=== PATIENT | female | born 1950 | race Caucasian/White ===

== ENCOUNTER 2020-01-03 11:03 | Observation (INO) | payer MEDICARE, SELFPAY ==
[2020-01-03] VITALS (8 sets, daily range): BP systolic 109–149; BP diastolic 42–63; PULSE 50–59; RESP 16–23; TEMP 36.2–36.9; O2SAT 94–99
--- NOTE | ~2020-01-03 | XR_ITS ---
XR chest 2V 01/03/2020 13:27 Indication: Shortness of breath Procedure: 2 view chest Comparison: Comparison to multiple prior studies sequentially, with oldest reviewed study dated 11/2016. Findings: Status post median sternotomy for CABG. There is a prosthetic heart valve. There are bilate ral pleural effusions, right greater than left. There is bibasilar airspace disease. No edema or pneu mothorax. Impression: 1: Bibasilar airspace disease, atelectasis versus pneumonia. 2: Pleural effusions, right greater than left. 3: Cardiomegaly. Reviewed, dictated and finalized at location A. Impression: 1: Bibasilar airspace disease, atelectasis versus pneumonia. 2: Pleural effusions, right greater than left. 3: Cardiomegaly.
--- NOTE | 2020-01-03 11:45 | ECG_ITS ---
Measurements Intervals [place] Rate: 48 P: [place]: 0 QRS: 142 QRSD: 158 T: 69 QT: 544 QTc: 491 Interpretive Statements ATRIAL FIBRILLATION WITH SLOW VENTRICULAR RESPONSE RIGHT BUNDLE BRANCH BLOCK LEFT POSTERIOR FASCICULAR BLOCK BASELINE ARTIFACT- I, II, III, AVR, AVL, AVF ABNORMAL ECG Electronically Signed On 01-03-2020 13:03:59 CDT by Domo Zeng D.O.
[2020-01-03 12:00] LABS: Basophils Absolute Auto 0.1 K/mm3 (0.0-0.1); Basophils Percent Auto 1.1 % (0.2-1.2); Eosinophils Absolute Auto 0.3 K/mm3 (0-0.3); Eosinophils Percent Auto 2.9 % (0-4.4); Hematocrit 35.7 % (37.0-47.0); Hemoglobin 11.2 g/dL (12.0-15.0); Immature Granulocyte Absolute 0.02 K/mm3 (0.00-0.031); Immature Granulocyte Percent A 0.2 % (0-0.5); Lymphocytes Absolute Auto 1.37 K/mm3 (0.9-3.2); Lymphocytes Percent Auto 13.7 % (18.3-44.2); Mean Corpuscular HGB Conc 31.4 g/dl (32-36); Mean Corpuscular Hemoglobin 27.5 pg (26-34); Mean Corpuscular Volume 87.5 fl (80-100); Mean Platelet Volume 11.2 fl (7.4-10.4); Monocytes Percent Auto 9.9 % (2.6-8.5); Neutrophils Absolute Auto 7.2 K/mm3 (1.3-6.7); Neutrophils Percent Auto 72.2 % (45.5-73.1); Platelet Count Result 193 k/mm3 (150-375); Red Blood Count 4.08 M/mm3 (4.2-5.4); Red Cell Distribution Width 15.5 % (11.5-14.5)
[2020-01-03 12:11] LABS: Blood Urea Nitrogen 18 mg/dL (7-17); Calcium 9.7 mg/dL (8.4-10.2); Carbon Dioxide 26 mmol/L (22-30); Chloride 107 mmol/L (98-107); Estimated CRCL calculation 32 ml/min; Estimated Glomerular Filt Rate 34; Glucose 89 mg/dL (65-105); Potassium 3.4 mmol/L (3.4-5.0); Sodium 143 mmol/L (137-145)
--- NOTE | 2020-01-03 14:18 | ED.SOB ---
HPI - SOB/Dyspnea General Chief Complaint: Shortness of Breath/Dyspnea Stated Complaint: short of breath Time Seen by Provider: 01/03/20 14:17 Source: patient Mode of arrival: ambulatory Limitations: no limitations History of Present Illness HPI Narrative: Pt is a 69 y/o female who presents to the ED with c/o SOB that started 3 weeks ago and has been worsening. Pt denies a H/o CHF, but reports a H/o CABG and animal derived heart valve replacement. She reports dyspnea on exertion, orthopnea, and BLE swelling, but she denies having a cough. Pt takes Eliquis as her anticoagulation therapy. Her medical researcher is Dr. Koul. KATZ elicited complaint: shortness of breath Onset (ago): week(s) (3) Timing: progressively worsening Exacerbating factors: lying flat and exertion Associated symptoms: orthopnea and other (dyspnea on exertion, BLE swelling) Related Data Home Medications Medication Instructions Recorded Confirmed albuterol sulfate INHALATION 09/13/19 apixaban [Eliquis] 5 mg PO BID 09/13/19 carvedilol 3.125 mg PO BID 09/13/19 ergocalciferol (vitamin D2) 50,000 unit PO WEEKLY 09/13/19 [Vitamin D2] escitalopram oxalate 10 mg PO DAILY 09/13/19 fluticasone propion-salmeterol INHALATION 09/13/19 [Advair Diskus] lisinopril 20 mg PO DAILY 09/13/19 omalizumab [Xolair] 150 mg SUBCUT [id number] 09/13/19 rosuvastatin 40 mg PO DAILY 09/13/19 Allergies Allergy/AdvReac Type Severity Reaction Status Date / Time peanut Allergy Unknown Anaphylaxis Verified 11/01/19 19:02 tree nut Allergy Unknown Anaphylaxis Verified 11/01/19 19:02 walnut Allergy Unknown Anaphylaxis Verified 11/01/19 19:02 Review of Systems Review of Systems: All systems reviewed & are unremarkable except as noted in HPI and below Cardiovascular: Cardiovascular: Reports leg edema (BLE) and Reports orthopnea Respiratory: Respiratory: Denies cough, Reports dyspnea and Reports dyspnea on exertion PMFSH Past Medical History Medical History Afib Aortic valve disease Asthma Eczema Hypertension Obesity Pneumonia Sleep apnea TIA (transient ischemic attack) Surgical History Surgical History History of cardiac catheterization History of heart surgery single bypass History of heart valve replacement History of orthopedic surgery History of spinal fusion History of tubal ligation Social History Social History Smoking status: Never smoker Exam Narrative: Exam Narrative: APPEARANCE: No acute distress, nontoxic, resting in bed EYES: EOMI HEENT: Normocephalic, atraumatic, OMM RESPIRATORY: No respiratory distress crackles in bilateral lower lung villafana CARDIOVASCULAR: Irregular irregular with grade 3 out of 6 systolic ejection murmur ABDOMINAL: Soft, nontender, nondistended, no rebound or guarding MUSCULOSKELETAl: Moves all extremities. No clubbing, cyanosis 3+ edema the bilateral lower extremities NEURO: Awake and alert. Following commands, speech normal, no focal deficits SKIN:: Warm, dry. No rashes lesions or abrasions PSYCHIATRIC: Normal affect/mood, Course Course Emergency Course: Discussed with PETE Rodriguez for Dr. Flowers presentation work-up. Request patient receive Lasix 20 mg x 1 now and will follow as inpatient Discussed with DELORIS Fermin for Dr. Rey presentation work-up. Agrees with admission at this time Discussed with patient and family results of workup and diagnosis. Discussed need for admission. Patient and family understand and agree to current treatment plan Vital Signs Vital signs: Vital Signs Temperature 98.4 F 01/03/20 11:49 Pulse Rate 59 L 01/03/20 11:49 Respiratory Rate 20 01/03/20 11:49 Blood Pressure 109/57 L 01/03/20 11:49 Pulse Oximetry 95 01/03/20 11:49 Temperature 98.4 F 01/03/20 11:49 Pulse Rate 50 L 01/03/20 15:46 Respiratory Rate 16 01/03/20 15
[2020-01-03 15:04] LABS: Partial Thromboplastin Time 33.2 SECONDS (22.3-36.8)
[2020-01-03 15:23] LABS: Troponin I 0.023 ng/mL (0.000-0.034)
[2020-01-03 15:28] LABS: NT Pro B Type Natriuretic Pept 1840 PG/ML (5-100)
[2020-01-03 15:30] LABS: INR 1.6; Prothrombin Time 18.6 Seconds (11.1-14.7)
[2020-01-03] MEDS: FUROSEMIDE INJ 40 MG/4 ML VIAL 20 MG IV PUSH (15:52)
[2020-01-03] MEDS: POTASSIUM CHLORIDE 20 MEQ TABLET PO (15:53)
--- NOTE | 2020-01-03 18:28 | ADMGEN ---
This patient, Kalli Cannon, was admitted to 2 Medical Room 244-01. Patient/family oriented to hospital policies and general routines including ID bracelet, bed and alarms, visiting hours, pain management, procedures, bathroom and other care routines, personal items, smoking policy, room service/diet, and visiting hours. Valuables list has been completed. Information on how to activate the Rapid Response Team has been discussed. Patient/Family are encouraged to report perceived risks to care and to ask questions if they do not understand what they are told or what they should do.
[2020-01-03 19:48] LABS: Troponin I 0.027 ng/mL (0.000-0.034)
[2020-01-03 23:30] LABS: Troponin I 0.031 ng/mL (0.000-0.034)
[2020-01-03] MEDS: AMLODIPINE BESYLATE 5 MG TABLET 10 MG PO (23:44)
[2020-01-03] MEDS: APIXABAN 5 MG TABLET PO (23:44)
[2020-01-03] MEDS: carvediloL 3.125 MG TABLET PO (23:45)
[2020-01-03] MEDS: hydrALAZINE HCL 50 MG TABLET PO (23:49)
[2020-01-03] MEDS: ROSUVASTATIN 10 MG TABLET 40 MG PO (23:49)
[2020-01-04] VITALS (20 sets, daily range): BP systolic 101–122; BP diastolic 48–57; PULSE 45–57; RESP 16–20; TEMP 36.2–36.8; O2SAT 93–95
--- NOTE | 2020-01-04 | ECHO_ITS ---
Patient Info Name: Kalli Cannon Age: 69 years : 1950 Gender: Female Ht: 63 in Wt: 176 lbs BSA: 1.91 m2 HR: 50 bpm BP: 101 / 48 mmHg Heart Rhythm: Indeterminant Technical Quality: Fair Exam Date: 01/04/2020 12:36 PM Exam Location: [facility] Pulmonary Patient Status: Inpatient Admit Date: 01/03/2020 Staff Ordering Physician: Malina Zamudio MD Conference Center Coordinator: Lillian Koch RDCS Attending Provider: Juvenal Hartman PA-C Referring Physician: Lizz SMYTH; Exam Type: CA echo doppler color flow Study Info Indications - chf, avr, cabg Complete two-dimensional, color flow and Doppler transthoracic echocardiogram is performed. Summary 1. Left ventricular chamber size and systolic function are normal with no regional wall motion abnormalities with an estimated ejection fraction of 65-70%. Grade 2 diastolic dysfunction is present.Mild LVH is seen. There is flattening of the interventricular septum during diastole consistent with volume overload. 2. Right ventricular chamber dimension is severely enlarged with mild dysfunction. 3. Left atrial chamber dimension is mildly enlarged. 4. Right atrial chamber dimension is moderately enlarged. 5. Normal appearing TAVR bioprosthetic valve. Peak flow 3.4 m/sec, peak gradient 47 mm Hg, mean gradient 22 mm Hg and aortic valve area 1.5-1.6 cm2. 6. There is trace regurgitation of the bioprosthetic aortic valve. 7. There is severe tricuspid valve regurgitation. 8. Mild pulmonary hypertension, estimated pulmonary arterial systolic pressure is 43 mmHg. 9. Dilated inferior vena cava with >50% collapse upon inspiration consistent with significantly elevated right atrial pressure, 10 mmHg. Left Ventricle Left ventricular chamber dimension is normal. Left ventricular systolic function is normal, estimated at Empty. There is moderately increased left ventricular wall thickness. Left ventricular septal wall motion is normal. The left ventricular diastolic function is grade II diastolic dysfunction. Left ventricular chamber size and systolic function are normal with no regional wall motion abnormalities with an estimated ejection fraction of 65-70%. Grade 2 diastolic dysfunction is present.Mild LVH is seen. There is flattening of the interventricular septum during diastole consistent with volume overload. Right Ventricle Right ventricular chamber dimension is severely enlarged with mild dysfunction. Right ventricular systolic function is reduced. Left Atria Left atrial chamber dimension is mildly enlarged. Right Atria Right atrial chamber dimension is moderately enlarged. Aortic Valve The aortic valve is trileaflet. There is no sclerosis of the bioprosthetic aortic valve leaflets. There is no bioprosthetic aortic valve stenosis. There is trace regurgitation of the bioprosthetic aortic valve. Normal appearing TAVR bioprosthetic valve. Peak flow 3.4 m/sec, peak gradient 47 mm Hg, mean gradient 22 mm Hg and aortic valve area 1.5-1.6 cm2. Pulmonic Valve The pulmonic valve is normal. There is no pulmonic valve stenosis. There is trace pulmonic regurgitation. Mitral Valve The mitral valve has thickened leaflets. There is no mitral valve stenosis. There is trace mitral valve regurgitation. Tricuspid Valve The tricuspid valve leaflets are normal. There is no significant tricuspid valve stenosis. There is severe tricuspid valve regurgitation. Mild pulmonary hypertension, estimated pulmonary arterial systolic pressure is 43 mmHg.
[2020-01-04] MEDS: IPRATROPIUM BR 0.02% INH SOLN 0.5 MG/2.5 ML VIAL INHALATION ×4 (02:00→20:10)
[2020-01-04] MEDS: ALBUTEROL SULFATE NEB 2.5 MG/0.5 ML INH 5 MG INHALATION ×4 (02:00→20:10)
[2020-01-04 05:44] LABS: Basophils Absolute Auto 0.1 K/mm3 (0.0-0.1); Basophils Percent Auto 1.3 % (0.2-1.2); Eosinophils Absolute Auto 0.4 K/mm3 (0-0.3); Eosinophils Percent Auto 4.7 % (0-4.4); Hematocrit 30.6 % (37.0-47.0); Hemoglobin 9.9 g/dL (12.0-15.0); Immature Granulocyte Absolute 0.02 K/mm3 (0.00-0.031); Immature Granulocyte Percent A 0.3 % (0-0.5); Lymphocytes Absolute Auto 1.45 K/mm3 (0.9-3.2); Lymphocytes Percent Auto 19.4 % (18.3-44.2); Mean Corpuscular HGB Conc 32.4 g/dl (32-36); Mean Corpuscular Hemoglobin 28.2 pg (26-34); Mean Corpuscular Volume 87.2 fl (80-100); Mean Platelet Volume 11.4 fl (7.4-10.4); Monocytes Percent Auto 13.1 % (2.6-8.5); Neutrophils Absolute Auto 4.6 K/mm3 (1.3-6.7); Neutrophils Percent Auto 61.2 % (45.5-73.1); Platelet Count Result 160 k/mm3 (150-375); Red Blood Count 3.51 M/mm3 (4.2-5.4); Red Cell Distribution Width 15.7 % (11.5-14.5); White Blood Count 7.5 K/mm3 (4.5-10.0)
[2020-01-04 06:15] LABS: Blood Urea Nitrogen 18 mg/dL (7-17); Calcium 8.8 mg/dL (8.4-10.2); Carbon Dioxide 27 mmol/L (22-30); Chloride 105 mmol/L (98-107); Estimated CRCL calculation 37 ml/min; Estimated Glomerular Filt Rate 41; Glucose 81 mg/dL (65-105); Potassium 3.1 mmol/L (3.4-5.0); Sodium 142 mmol/L (137-145)
[2020-01-04] MEDS: hydrALAZINE HCL 50 MG TABLET PO (09:02)
[2020-01-04] MEDS: APIXABAN 5 MG TABLET PO ×2 (09:02→17:51)
[2020-01-04] MEDS: carvediloL 3.125 MG TABLET PO ×2 (09:02→17:52)
--- NOTE | 2020-01-04 09:02 | PM.IMHP ---
H&P: HPI History of Present Illness Chief complaint: CHF, acute renal insufficiency Narrative: Kalli Cannon is a 69 year old female with history of a. fib (on Eliquis alf), aortic stenosis s/p valve replacement 2016, CAD s/p CABG, asthma, and HTN among other comorbidities who presented to the ER on 01/02 with complaints of 3 weeks of worsening SOB/BLACK. She states she has been having worsened shortness of breath, particularly with exertion, noting that she used to be able to walk her dog 1 mile, but now can only walk the dog 1/4 mile with frequent stops. She has noticed LE swelling; right>left; she does not recall if she had vein harvesting from either leg. She notes that she sleeps with her head elevated; she thinks lying flat is uncomfortable, but she is able to do so if needed. Patient states she last saw her Bottle Machine Operator, Dr. Barrera, in 10/2019 which was a follow up after her BP medications were adjusted from 09/2019. She thinks her last Echo was performed in 2016 at her Bottle Machine Operator's office. Upon further questioning, she states she developed a dry cough today. She also has occasionally noted a fluttering in her chest with associated mid-chest pressure; this resolves on its own. She has noticed n/v off and on these past several weeks as well. This morning she felt lightheaded briefly after eating breakfast which resolved on its own. She thinks her LE swelling has improved much since given diuretic last night. She has no other comlaints at this time. Denies f/ns, headaches, changes in v/h, cp, d/c, abd pain, dysphagia, melena, brbpr, dysuria, hematuria, cloudy urine, calf pain. Review of Systems Review of Systems: All systems reviewed & are unremarkable except as noted in HPI and below PMFSH Past Medical History Medical History Afib Aortic valve disease Asthma Eczema Factor V Leiden Hypertension Obesity Pneumonia Sleep apnea TIA (transient ischemic attack) Surgical History Surgical History History of cardiac catheterization History of heart surgery single bypass History of heart valve replacement History of spinal fusion History of tubal ligation Family History Family History Mother Stomach cancer Uterine cancer Hypertension Father Atrial fibrillation Sibling Hypertension Factor 5 Leiden mutation, heterozygous DVT (deep venous thrombosis) Social History Social History Social History: Patient lives at home with daughter, Dominique. She designates her daughter Louisa as her surrogate MDM. Her PCP is Dr. Cason. She wishes to be listed as a Full Code Smoking status: Never smoker Alcohol intake: never Substance use: never Substance use type: does not use Gender identity (if verbalized by the patient): Female Spiritual care concerns: No Agree to blood products: Yes Meds Home Medications and Allergies Home Medications Medication Instructions Recorded Confirmed Type albuterol sulfate [Ventolin HFA] 2 puff INHALATION DAILY PRN 09/13/19 01/03/20 History apixaban [Eliquis] 5 mg PO BID 09/13/19 01/03/20 History carvedilol [Coreg] 3.125 mg PO BID 09/13/19 01/03/20 History escitalopram oxalate [Lexapro] 10 mg PO HS 09/13/19 01/03/20 History lisinopril 20 mg PO DAILY 09/13/19 01/03/20 History omalizumab [Xolair] 150 mg SUBCUT [id number] 09/13/19 01/03/20 History rosuvastatin [Crestor] 40 mg PO HS 09/13/19 01/03/20 History amlodipine 10 mg PO HS 01/03/20 01/03/20 History fluticasone propion-salmeterol 2 puff INHALATION Q12H 01/03/20 01/03/20 History [Advair HFA] hydralazine 50 mg PO BID 01/03/20 01/03/20 History Allergies Allergy/AdvReac Type Severity Reaction Status Date / Time peanut Allergy Unknown Anaphylaxis Verified 11/01/19 19:02 tree nut Allergy Unknown Anaphyl
--- NOTE | 2020-01-04 11:16 | WPDCN ---
Assessment and Plan Assessment and plan (1) Acute on chronic diastolic CHF (congestive heart failure): Code(s): I50.33 - Acute on chronic diastolic (congestive) heart failure Status: Acute Assessment and Plan: Patient has diastolic dysfunction and LVH as a result of her longstanding aortic valve disease and hypertension. She has developed CHF of the last couple of months with volume overload. Rule out valve disease or new cardiomyopathy with echo Continue diuresis, furosemide 20 mg IVP BID. We can hold her hydralazine (and/or amlodipine) for now to improve her blood pressure so she can tolerate diuretics better. Likely she will need long-term diuretic therapy. There is some evidence of spironolactone may be helpful with diastolic CHF; add spironolactone 25 mg qd. (2) CAD (coronary artery disease): Code(s): I25.10 - Atherosclerotic heart disease of [place] coronary artery without angina pectoris Status: Acute Assessment and Plan: CABG x1. Complains of exertional chest discomfort. This is likely related to her CHF. Will follow up as an outpatient and if persistent do ischemia evaluation. (3) S/P aortic valve replacement with bioprosthetic valve: Code(s): Z95.3 - Presence of xenogenic heart valve Status: Acute Assessment and Plan: Bioprosthetic aortic valve replacement 2017. Re-evaluate w/ Echo. (4) Hypertension: Code(s): I10 - Essential (primary) hypertension Status: Acute Assessment and Plan: Had severe hypertension last fall, now well controlled, now a bit soft. (5) Afib: Code(s): I48.91 - Unspecified atrial fibrillation Status: Acute Assessment and Plan: Looks like the patient has chronic atrial fibrillation at this point. (6) Bradycardia: Code(s): R00.1 - Bradycardia, unspecified Status: Acute Assessment and Plan: Tends to run bradycardic, heart rate upper 40s to 50s at rest, for at least the last couple of months Will follow. (7) Hypokalemia: Code(s): E87.6 - Hypokalemia Status: Acute Assessment and Plan: Replenish (8) Acute renal insufficiency: Code(s): N28.9 - Disorder of kidney and ureter, unspecified Status: Acute Assessment and Plan: Daily BMP HPI Data of Consult Date/Time: 01/04/20 11:16 Requesting Physician: Juvenal Hartman PA-C Primary Care Provider: Mk Cason, Consult Narrative Narrative: DATE OF SERVICE: 01/04/2020 Kalli Cannon is a 69 year old female kindly referred by Dr. Rey for our advice and opinion regarding her CHF, in consultation. Mrs. Cannon has a history of aortic valve replacement CABG, as well as PAF. She is followed by Dr. Barrera in our office. Mrs. Cannon has had BLACK for the last 3 weeks. Normally she can walk her dog, Gary, 1-1.5 miles per day but now after 1/4 mi she has to stop because of shortness of breath. She noticed edema for the past week, decreased appetite, and weight gain of 7 lb. She has had some occasional tightness in her chest with walking as well. She saw her PMD, Dr. Cason, yesterday was directed to come to the emergency room. There she was found to have CHF with a proBNP of 1800 and small bilateral effusions. She was given Lasix 20 mg IV push x1 but because of soft BP no further diuresis. Of note, the patient came to the ER in August 2019 for a blood pressure 250/72 and amlodipine and hydralazine were added. In October 2019 she went to the emergency room with SOB, a BNP of 1300, and a clear chest x-ray and she was given Lasix for [address] Barrera on 11/10/2019 with an SBP of 130, stable. Serum metanephrines, renin and aldosterone were all normal. The patient was diagnosed with AFib in 2014 and is anticoagulated with Eliquis. She had severe aortic stenosis and had aortic valve replacement, CABG x1 to the Left anterior descending, and a Moe Maze procedure in March 2017. She thinks
[2020-01-04] MEDS: POTASSIUM CHLORIDE 20 MEQ PACKET (FOR LIQUID) 40 MEQ PO (13:39)
[2020-01-04] MEDS: FUROSEMIDE INJ 40 MG/4 ML VIAL 20 MG IV PUSH (17:53)
--- NOTE | 2020-01-04 19:01 | PC.NURSE ---
On 01/04/20, the Catherine kern RN, provided care and completed [facility] [place] documentation on this patient. I have reviewed her documentation and agree with the findings.
[2020-01-04] MEDS: ROSUVASTATIN 10 MG TABLET 40 MG PO (21:39)
[2020-01-04] MEDS: AMLODIPINE BESYLATE 5 MG TABLET 10 MG PO (21:40)
[2020-01-05] VITALS (16 sets, daily range): BP systolic 116–146; BP diastolic 37–47; PULSE 49–68; RESP 16–19; TEMP 36.4–37.1; O2SAT 93–97
[2020-01-05] MEDS: ALBUTEROL SULFATE NEB 2.5 MG/0.5 ML INH 5 MG INHALATION ×2 (02:45→09:26)
[2020-01-05] MEDS: IPRATROPIUM BR 0.02% INH SOLN 0.5 MG/2.5 ML VIAL INHALATION ×2 (02:45→09:26)
[2020-01-05 05:34] LABS: Hematocrit 31.5 % (37.0-47.0); Mean Corpuscular HGB Conc 31.7 g/dl (32-36); Mean Corpuscular Hemoglobin 27.7 pg (26-34); Mean Corpuscular Volume 87.3 fl (80-100); Mean Platelet Volume 11.8 fl (7.4-10.4); Platelet Count Result 152 k/mm3 (150-375); Red Blood Count 3.61 M/mm3 (4.2-5.4); Red Cell Distribution Width 15.5 % (11.5-14.5); White Blood Count 7.6 K/mm3 (4.5-10.0)
[2020-01-05 06:22] LABS: Blood Urea Nitrogen 21 mg/dL (7-17)
[2020-01-05 06:23] LABS: Calcium 9.1 mg/dL (8.4-10.2); Carbon Dioxide 27 mmol/L (22-30); Chloride 104 mmol/L (98-107); Estimated CRCL calculation 34 ml/min; Estimated Glomerular Filt Rate 37; Glucose 89 mg/dL (65-105); Magnesium 1.8 mg/dL (1.6-2.3); Potassium 3.1 mmol/L (3.4-5.0); Sodium 138 mmol/L (137-145)
[2020-01-05] MEDS: FUROSEMIDE INJ 40 MG/4 ML VIAL 20 MG IV PUSH (07:56)
[2020-01-05] MEDS: APIXABAN 5 MG TABLET PO ×2 (08:01→16:40)
[2020-01-05] MEDS: SPIRONOLACTONE 25 MG TABLET PO (08:01)
[2020-01-05] MEDS: carvediloL 3.125 MG TABLET PO ×2 (08:01→16:41)
[2020-01-05] MEDS: POTASSIUM CHLORIDE 20 MEQ PACKET (FOR LIQUID) PO (08:02)
--- NOTE | 2020-01-05 15:20 | PM.PNCARD ---
Progress Note: A&P Assessment and Plan (1) Acute on chronic diastolic CHF (congestive heart failure): Code(s): I50.33 - Acute on chronic diastolic (congestive) heart failure Status: Acute Assessment and Plan: She has diastolic dysfunction and LVH as a result of her longstanding aortic valve disease and hypertension. She has developed CHF of the last couple of months with volume overload. Echo 01/04/2020: 1. Lleft ventricular chamber size and systolic function are normal with no regional wall motion abnormalities with an estimated ejection fraction of 65-70%. Grade 2 diastolic dysfunction is present.Mild LVH is seen. There is flattening of the interventricular septum during diastole consistent with volume overload. 2. Right ventricular chamber dimension is severely enlarged with mild dysfunction. 3. Left atrial chamber dimension is mildly enlarged. 4. Right atrial chamber dimension is moderately enlarged. 5. Normal appearing TAVR bioprosthetic valve. Peak flow 3.4 m/sec, peak gradient 47 mm Hg, mean gradient 22 mm Hg and aortic valve area 1.5-1.6 cm2. 6. There is trace regurgitation of the TAVR aortic valve. 7. There is severe tricuspid valve regurgitation. 8. Mild pulmonary hypertension, estimated pulmonary arterial systolic pressure is 43 mmHg. 9. Dilated inferior vena cava with >50% collapse upon inspiration consistent with significantly elevated right atrial pressure, 10 mmHg. Give furosemide 40 mg IV push now. Potassium 40 mEq p.o. now. Give another dose of potassium 40 mEq at 9:00 a.m. this evening. Stop amlodipine for now so blood pressure will tolerate diuresis. Continue spironolactone 25 mg daily. Likely she will need long-term diuretic therapy. BMP and magnesium in the morning. (2) CAD (coronary artery disease): Qualifiers: Coronary Disease-Associated Artery/Lesion type: [place] artery [place] vs. transplanted heart: [place] heart Associated angina: without angina Qualified Code(s): I25.10 - Atherosclerotic heart disease of [place] coronary artery without angina pectoris Code(s): I25.10 - Atherosclerotic heart disease of [place] coronary artery without angina pectoris Status: Acute Assessment and Plan: CABG x1. HARTMANN to LAD Likely related to CHF. No complaints of any chest discomfort today. Will follow closely as an outpatient. (3) S/P aortic valve replacement with bioprosthetic valve: Code(s): Z95.3 - Presence of xenogenic heart valve Status: Acute Assessment and Plan: Bioprosthetic aortic valve replacement 2016. Echo as above (4) Hypertension: Qualifiers: Hypertension type: essential hypertension Qualified Code(s): I10 - Essential (primary) hypertension Code(s): I10 - Essential (primary) hypertension Status: Acute Assessment and Plan: Soft at this time. Will hold amlodipine this evening. (5) Afib: Qualifiers: Atrial fibrillation type: permanent Qualified Code(s): I48.21 - Permanent atrial fibrillation Code(s): I48.91 - Unspecified atrial fibrillation Status: Acute Assessment and Plan: Looks like the patient has chronic atrial fibrillation at this point. Rate is nicely controlled. No pauses noted on telemetry. Can DC tele. (6) Bradycardia: Code(s): R00.1 - Bradycardia, unspecified Status: Acute Assessment and Plan: Asymptomatic. Telemetry as above (7) Hypokalemia: Code(s): E87.6 - Hypokalemia Status: Acute Assessment and Plan: Supplementing. Check BMP and magnesium in the morning. (8) Acute renal insufficiency: Code(s): N28.9 - Disorder of kidney and ureter, unspecified Status: Acute Assessment and Plan:
--- NOTE | 2020-01-05 15:50 | PM.IMPN ---
Progress Note: A&P Assessment and Plan (1) Acute on chronic diastolic CHF (congestive heart failure): Code(s): I50.33 - Acute on chronic diastolic (congestive) heart failure Status: Acute Assessment and Plan: Patient has known diastolic dysfunction and LVH from previous Echo. Echo this hospital stay shows Grade 2 diastolic dysfunction and LVH with EF of 65-79%. Mild pulmonary hypertension also noted. She appears to be clinically improving today Further recommendations per Cardiology IV lasix through today She is now on spironolactone per Cardiology Continue to monitor (2) Afib: Qualifiers: Atrial fibrillation type: permanent Qualified Code(s): I48.21 - Permanent atrial fibrillation Code(s): I48.91 - Unspecified atrial fibrillation Status: Acute Assessment and Plan: A. fib with slow ventricular response. Rate controlled. Continue Eliquis; continue carvedilol Telemetry d/c'd Monitor (3) Sleep apnea: Code(s): G47.30 - Sleep apnea, unspecified Status: Acute Assessment and Plan: No acute issues Continue CPAP (4) Asthma: Code(s): J45.909 - Unspecified asthma, uncomplicated Status: Acute Assessment and Plan: Lung exam shows improvement today. No symptoms of wheezing per patient Continue home medication regimen Monitor (5) Hypertension: Qualifiers: Hypertension type: essential hypertension Qualified Code(s): I10 - Essential (primary) hypertension Code(s): I10 - Essential (primary) hypertension Status: Acute Assessment and Plan: BP reviewed 01/04; 110s sys today Lisinopril and amlodipine have been held Carvedilol and hydralazine continued Patient also now on Spironolactone per Cardiology Further management per Cardiology Monitor closely, particularly if further diuresis (6) Hypokalemia: Code(s): E87.6 - Hypokalemia Status: Acute Assessment and Plan: K 3.1 today; this has been replaced Trend tomorrow Replace as needed Subjective Date/time seen: 01/05/20 15:50 Interval history: Patient is a 69 yo F with history of a. fib (on Eli[facility]), aortic stenosis s/p valve replacement 2017, CAD s/p CABG, asthma, diastolic CHF, and HTN who is here for treatment of acute on chronic diastolic CHF. Patient is feeling better today. Breathing better. She is walking the halls today without having to stop. She notes her swelling in her feet have improved; still right>left. She denies cp/palpitations. No other complaints today. Denies f/c/ns, headaches, dizziness, lightheadedness, changes in v/h, cp/palpitations, n/v/d/c, abd pain, dysphagia, melena, brbpr, dysuria, hematuria, cloudy urine. Review of Systems Review of Systems: All systems reviewed & are unremarkable except as noted in HPI and below Exam Narrative: Exam Narrative: Patient sitting upright in chair at time of visit. Const: General: cooperative, healthy appearing, comfortable, no acute distress, well developed, alert and awake Nutritional Appearance: obese Orientation/consciousness: patient oriented x3 HENMT: Head: normocephalic and atraumatic General nose exam: Normal nares present Face and sinus: face symmetric Mouth: Yes moist mucous membranes Eyes: General: appearance normal, both eyes and all related structures EOM: EOMs intact bilaterally Neck: Neck: trachea midline, supple and no JVD Resp: Effort & Inspection: normal respiratory effort Auscultation: crackles (mild, bases) and diminished lung sounds Cardio: Rate: bradycardic Rhythm: abnormal rhythm irregularly irregular Heart sounds: Murmur heart sound present systolic GI: Inspection: non-distended GI Palp: No abdominal ten
[2020-01-05] MEDS: POTASSIUM CHLORIDE 20 MEQ TABLET 40 MEQ PO ×2 (16:39→22:31)
[2020-01-05] MEDS: FUROSEMIDE INJ 40 MG/4 ML VIAL IV PUSH (16:40)
[2020-01-05] MEDS: ROSUVASTATIN 10 MG TABLET 40 MG PO (21:55)
[2020-01-06] VITALS: PULSE 46
[2020-01-06 01:14] VITALS: PULSE 56; RESP 16; O2SAT 94
[2020-01-06 06:00] VITALS: BP 127/58; PULSE 54; RESP 16; TEMP 36.7; O2SAT 95
[2020-01-06 06:09] LABS: Hematocrit 33.2 % (37.0-47.0); Hemoglobin 10.4 g/dL (12.0-15.0); Mean Corpuscular HGB Conc 31.3 g/dl (32-36); Mean Corpuscular Hemoglobin 27.4 pg (26-34); Mean Corpuscular Volume 87.6 fl (80-100); Mean Platelet Volume 11.8 fl (7.4-10.4); Platelet Count Result 178 k/mm3 (150-375); Red Blood Count 3.79 M/mm3 (4.2-5.4); Red Cell Distribution Width 15.2 % (11.5-14.5); White Blood Count 8.4 K/mm3 (4.5-10.0)
[2020-01-06 07:01] LABS: Iron 27 ug/dL (37-170)
[2020-01-06 07:11] LABS: Percent Iron Saturation 8 % (20-50)
[2020-01-06 07:14] LABS: Blood Urea Nitrogen 18 mg/dL (7-17); Calcium 9.6 mg/dL (8.4-10.2); Carbon Dioxide 32 mmol/L (22-30); Chloride 100 mmol/L (98-107); Estimated CRCL calculation 32 ml/min; Estimated Glomerular Filt Rate 34; Glucose 87 mg/dL (65-105); Magnesium 1.8 mg/dL (1.6-2.3); Potassium 3.5 mmol/L (3.4-5.0); Sodium 138 mmol/L (137-145)
[2020-01-06 08:00] VITALS: PULSE 54; RESP 16; O2SAT 95
[2020-01-06 08:57] VITALS: O2SAT 95
[2020-01-06] MEDS: POTASSIUM CHLORIDE 20 MEQ PACKET (FOR LIQUID) PO (09:46)
[2020-01-06] MEDS: APIXABAN 5 MG TABLET PO (09:46)
[2020-01-06] MEDS: carvediloL 3.125 MG TABLET PO (09:46)
[2020-01-06] MEDS: SPIRONOLACTONE 25 MG TABLET PO (09:46)
--- NOTE | 2020-01-06 12:08 | PM.DS ---
DS: Diagnosis Admitting Diagnosis Admitting Diagnosis: Other specified abnormal findings of blood chemistry Discharge Diagnosis (1) Acute on chronic diastolic CHF (congestive heart failure): Code(s): I50.33 - Acute on chronic diastolic (congestive) heart failure Status: Acute Assessment and Plan: Patient has known diastolic dysfunction and LVH from previous Echo. Echo this hospital stay shows Grade 2 diastolic dysfunction and LVH with EF of 65-70%. Mild pulmonary hypertension also noted. She appears to be clinically improving today Further recommendations per Cardiology Likely discharge today She is now on spironolactone per Cardiology F/u with cardiology later this month (2) Afib: Qualifiers: Atrial fibrillation type: permanent Qualified Code(s): I48.21 - Permanent atrial fibrillation Code(s): I48.91 - Unspecified atrial fibrillation Status: Acute Assessment and Plan: Rate controlled. Continue Eliquis; continue carvedilol (3) Sleep apnea: Code(s): G47.30 - Sleep apnea, unspecified Status: Acute Assessment and Plan: No acute issues Continue CPAP (4) Asthma: Code(s): J45.909 - Unspecified asthma, uncomplicated Status: Acute Assessment and Plan: Lung exam shows improvement today. No symptoms of wheezing per patient Continue home medication regimen (5) Hypertension: Qualifiers: Hypertension type: essential hypertension Qualified Code(s): I10 - Essential (primary) hypertension Code(s): I10 - Essential (primary) hypertension Status: Acute Assessment and Plan: BP reviewed today; 120s sys today BP medications per Cardiology recommendations Further management per Cardiology (6) Hypokalemia: Code(s): E87.6 - Hypokalemia Status: Acute Assessment and Plan: K 3.5 today; this has been replaced Trend in 1 week with BMP DS: Summary Hospital Course Reason for hospitalization: acute on chronic diastolic CHF Hospital Course: Patient is a 69 yo F with history of a. fib (on Eliquis rn long term care), aortic stenosis s/p valve replacement 2016, CAD s/p CABG, asthma, and HTN among other comorbidities who presented to the ER on 01/02 with complaints of 3 weeks of worsening SOB/BLACK. Patient noted that she was able to walk her dog 1 mile, but now could only walk her dog 1/4 mile and taking frequent stops to catch her breath. She had noticed swelling in her LE; right>left. SOB had progressively worsened to a point she decided to present to the ED for further evaluation. CXR in the ED showed bibasilar airspaced disease and pleural effusion with Cardiomegaly and BNP of 1840. Please see H&P for further details. Presenting VS: BP 109/57, HR 59, RR 20, temp 98.4, sat 95% RA Presenting Pertinent labs: WBC 10.0, H&H 11.2/35.7, MCV 87.5, PT 18.6, K 3.4, Cr 1.50, LA 1.0, troponins 0.023, 0.027, 0.031, BNP 1840. Iron 27, TIBC 343, % sat 8, ferritin 69.60. CBC, BMP, coags otherwise unremarkable Micro: BC showed no growth to date x2 Imagin/9 CXR Impression: 1: Bibasilar airspace disease, atelectasis versus pneumonia. 2: Pleural effusions, right greater than left. 3: Cardiomegaly. 01/03 Echo Summary 1. Left ventricular chamber size and systolic function are normal with no regional wall motion abnormalities with an estimated ejection fraction of 65-70%. Grade 2 diastolic dysfunction is present.Mild LVH is seen. There is flattening of the interventricular septum during diastole consistent with volume overload. 2. Right ventricular chamber dimension is severely enlarged with mild dysfunction. 3. Left atrial chamber dimension is mildly enlarged. 4. Right atrial chamber dimension is moder
[2020-01-06] MEDS: POTASSIUM CHLORIDE 20 MEQ TABLET 40 MEQ PO (12:54)
--- NOTE | 2020-01-06 12:58 | PM.PNCARD ---
Progress Note: A&P Assessment and Plan (1) Acute on chronic diastolic CHF (congestive heart failure): Code(s): I50.33 - Acute on chronic diastolic (congestive) heart failure Status: Acute Assessment and Plan: She has diastolic dysfunction and LVH as a result of her longstanding aortic valve disease and hypertension. She has developed CHF of the last couple of months with volume overload. Normal EF 65-70%. LVH. Grade 2 diastolic dysfunction. Right ventricular chamber dimension is severely enlarged with mild dysfunction. This is a change from her previous echo in 2018. Tricuspid regurgitation is also worse. She has diuresed well. Recommend discharge with 40 mg of furosemide daily. Check BMP on December with results to go to Dr. Barrera and primary care provider. (2) CAD (coronary artery disease): Qualifiers: Coronary Disease-Associated Artery/Lesion type: [place] artery [place] vs. transplanted heart: [place] heart Associated angina: without angina Qualified Code(s): I25.10 - Atherosclerotic heart disease of [place] coronary artery without angina pectoris Code(s): I25.10 - Atherosclerotic heart disease of [place] coronary artery without angina pectoris Status: Acute Assessment and Plan: CABG x1. HARTMANN to LAD Likely related to CHF. No further complaints of chest discomfort. (3) S/P aortic valve replacement with bioprosthetic valve: Code(s): Z95.3 - Presence of xenogenic heart valve Status: Acute Assessment and Plan: Bioprosthetic aortic valve replacement 2016. (4) Hypertension: Qualifiers: Hypertension type: essential hypertension Qualified Code(s): I10 - Essential (primary) hypertension Code(s): I10 - Essential (primary) hypertension Status: Acute Assessment and Plan: Restart amlodipine 10 mg at bedtime. Continue carvedilol 3.125 mg b.i.d.. Will not restart lisinopril or hydralazine at this time. She was asked to monitor her blood pressures and bring those to the office appointment on January 20. (5) Afib: Qualifiers: Atrial fibrillation type: permanent Qualified Code(s): I48.21 - Permanent atrial fibrillation Code(s): I48.91 - Unspecified atrial fibrillation Status: Acute Assessment and Plan: Looks like the patient has chronic atrial fibrillation at this point. Rate is nicely controlled. Continue anticoagulation with apixaban. (6) Bradycardia: Code(s): R00.1 - Bradycardia, unspecified Status: Acute Assessment and Plan: Asymptomatic. (7) Hypokalemia: Code(s): E87.6 - Hypokalemia Status: Acute Assessment and Plan: Supplemented. Check BMP and magnesium as above. (8) Acute renal insufficiency: Code(s): N28.9 - Disorder of kidney and ureter, unspecified Status: Acute Assessment and Plan: Monitor closely. Lab work as above. Additional Plan OK to discharge from cardiac standpoint See discharge instructions for follow-up Plan discussed with Dr Zamudio 1300 01/06/2020 Subjective Date/time seen: 01/06/20 12:58 Interval history: Follow-up for: Acute on chronic diastolic heart failure, coronary artery disease status post aorta coronary bypass graft x1, bioprosthetic aortic valve replacement 2017, hypertension, chronic atrial fibrillation, hypokalemia, acute renal insufficiency Date of service: 01/06/2020 Subjective: Denied chest discomfort, shortness of breath, lightheadedness or palpitations. Has been ambulating in the hallway loose with no difficulty. Lower extremity edema completely resolved. Review of Systems Constitutional: Constitutional: Denies difficulty sleeping and Denies fatigue Eyes: Eyes: Denies blurry vision ENT: Denies epistaxis
== END 2020-01-06 15:43 | disposition home or self-care (01) ==
LOC: ANHED 15:51 → ANH2MED 17:07
PROVIDERS: Internal Medicine Cardiovascular Disease; Nurse Practitioner Adult Health; Physician Assistant; Admitting Provider Family Medicine; Emergency Provider Emergency Medicine; PCP Student in an Organized Health Care Education/Training Program; Visit Provider Family Medicine
DX: I11.0 Hypertensive heart disease with heart failure (principal); I50.33 Acute on chronic diastolic (congestive) heart failure; I27.20 Pulmonary hypertension, unspecified; I48.21 Permanent atrial fibrillation; G47.30 Sleep apnea, unspecified; J45.909 Unspecified asthma, uncomplicated; E87.6 Hypokalemia; I25.10 Atherosclerotic heart disease of native coronary artery without angina pectoris; N28.9 Disorder of kidney and ureter, unspecified; R79.0 Abnormal level of blood mineral; Z79.01 Long term (current) use of anticoagulants; Z79.899 Other long term (current) drug therapy; Z95.1 Presence of aortocoronary bypass graft; Z95.3 Presence of xenogenic heart valve; Z98.1 Arthrodesis status
CPT/HCPCS: 36415; 71046; 80048; 82728; 83540; 83550; 83605; 83735; 83880; 84484; 85025; 85027; 85610; 85730; 87040; 93005; 93306; 94640; 96365; 96374; 96375; 96376; 99285; A9270; G0378; J1756; J1940

== ENCOUNTER 2020-04-15 00:30 | Outpatient (CLI) | payer MEDICARE, SELFPAY ==
[2020-04-15 16:19] LABS: SARS-CoV-2 RNA PCR Negative
== END 2020-04-15 00:31 | disposition home or self-care (01) ==
LOC: ANHCOVIDDT 00:30
PROVIDERS: Visit Provider Internal Medicine Cardiovascular Disease
DX: Z01.818 Encounter for other preprocedural examination (principal); Z11.59 Encounter for screening for other viral diseases; I49.5 Sick sinus syndrome
CPT/HCPCS: 87635; C9803; U0003

== ENCOUNTER 2020-04-18 05:22 | Day surgery (SDC) | payer MEDICARE, SELFPAY ==
[2020-04-18] VITALS (15 sets, daily range): BP systolic 115–146; BP diastolic 48–59; PULSE 60–67; RESP 15–21; TEMP 36.9–37.4; O2SAT 88–100; BMI 30.2
--- NOTE | ~2020-04-18 | XR_ITS ---
EXAMINATION: XR chest 1V portable EXAM DATE: 04/18/2020 12:08 INDICATION: Pacemaker insertion. TECHNIQUE: Portable AP frontal chest x-ray was obtained. Comparison is made to prior examination from 01/03/2020. FINDINGS: Interval insertion of right-sided dual-lead pacemaker with leads overlying expected positio ns of right atrial appendage and right ventricle. Aortic valve replacement. Sternotomy wires. No evidence of postprocedure pneumothorax. Resolution of previously seen right pleural effusion. No f ocal consolidation. There are bony degenerative changes. IMPRESSION: No acute cardiopulmonary findings. Reviewed, dictated and finalized at location B.
--- NOTE | ~2020-04-18 | XR_ITS ---
EXAMINATION: XR chest 2V DATE: 04/19/2020 08:20 INDICATION: One day post pacemaker insertion. TECHNIQUE: PA and lateral views of the chest were obtained. COMPARISON: Chest radiograph dated 04/18/2020 and 09/13/2019 FINDINGS: Chronic mild left basilar atelectasis/scarring. Very small left pleural effusion with blunting at the posterior sulcus. No pulmonary edema or pneumothorax. Borderline heart size. Median sternotomy wires and mediastinal surgical clips are seen, likely from prior coronary artery bypass grafting. Aortic v alve replacement. Dual lead pacemaker seen with leads projecting over the expected locations of the r ight atrium and right ventricle. IMPRESSION: 1. Very small left pleural effusion and mild left basilar atelectasis/scarring. Reviewed, dictated and finalized at location A.
--- NOTE | 2020-04-18 06:14 | ECG_ITS ---
Measurements Intervals [place] Rate: 63 P: ND: 0 QRS: 137 QRSD: 157 T: 56 QT: 464 QTc: 478 Interpretive Statements SINUS OR ECTOPIC ATRIAL RHYTHM RIGHT BUNDLE BRANCH BLOCK LEFT POSTERIOR FASCICULAR BLOCK ABNORMAL ECG Electronically Signed On 04-18-2020 8:37:57 CDT by Domo Zeng D.O.
[2020-04-18 07:45] LABS: Basophils Absolute Auto 0.1 K/mm3 (0.0-0.1); Basophils Percent Auto 1.1 % (0.2-1.2); Eosinophils Absolute Auto 0.4 K/mm3 (0-0.3); Eosinophils Percent Auto 5.2 % (0-4.4); Hematocrit 40.3 % (37.0-47.0); Hemoglobin 13.2 g/dL (12.0-15.0); Immature Granulocyte Absolute 0.02 K/mm3 (0.00-0.031); Immature Granulocyte Percent A 0.2 % (0-0.5); Lymphocytes Absolute Auto 1.63 K/mm3 (0.9-3.2); Lymphocytes Percent Auto 19.3 % (18.3-44.2); Mean Corpuscular HGB Conc 32.8 g/dl (32-36); Mean Corpuscular Volume 85.4 fl (80-100); Mean Platelet Volume 10.5 fl (7.4-10.4); Monocytes Absolute Auto 1.1 K/mm3 (0.1-0.6); Monocytes Percent Auto 12.4 % (2.6-8.5); Neutrophils Absolute Auto 5.2 K/mm3 (1.3-6.7); Neutrophils Percent Auto 61.8 % (45.5-73.1); Platelet Count Result 194 k/mm3 (150-375); Red Blood Count 4.72 M/mm3 (4.2-5.4); Red Cell Distribution Width 14.3 % (11.5-14.5); White Blood Count 8.4 K/mm3 (4.5-10.0)
[2020-04-18 07:55] LABS: Prothrombin Time 12.7 Seconds (11.1-14.7)
[2020-04-18 07:56] LABS: Blood Urea Nitrogen 17 mg/dL (7-17); Calcium 9.8 mg/dL (8.4-10.2); Carbon Dioxide 28 mmol/L (22-30); Chloride 105 mmol/L (98-107); Estimated CRCL calculation 42 ml/min; Estimated Glomerular Filt Rate 49; Glucose 93 mg/dL (65-105); Potassium 3.9 mmol/L (3.4-5.0); Sodium 138 mmol/L (137-145)
--- NOTE | 2020-04-18 08:38 | PM.IMHP ---
H&P: HPI History of Present Illness Chief complaint: Sick Sinus Syndrome Narrative: Kalli Cannon is a 69 year old female with symptomatic tachy-katherine syndrome and junctional rhythm who is here for elective pacemaker implant. Patient is followed by Dr. Barrera. She has a history of bioprosthetic aortic valve replacement and CABG x1 (HARTMANN to the Left anterior descending) and Maze procedure in March 2017. She has had problems with paroxysmal AFib and bradycardia with junctional rhythm heart rates of about 40 beats per minute, with short pauses 2.6 seconds. She has had trouble with BLACK, fatigue, and was hospitalized earlier this year with congestive heart failure. The patient is right handed. No allergies. Last dose of Eliquis was Friday. No history of clavicular fracture. She also has a history of TIA, factor 5 Leiden, HTN, dyslipidemia and asthma. Review of Systems Constitutional: Constitutional: Reports fatigue Eyes: Eyes: Reports no additional eye complaints ENT: Reports Normal hearing present Cardiovascular: Cardiovascular: Denies chest pain and Reports leg edema Respiratory: Respiratory: Denies chest congestion and Reports dyspnea on exertion Gastrointestinal: Gastrointestinal: Denies abdominal pain Genitourinary: Genitourinary: Denies hematuria Musculoskeletal: Musculoskeletal: Denies back pain Integumentary/Breasts: Skin/Breast: Denies rash Neurologic: Denies confusion Psychiatric: Psychiatric: Reports no additional psychiatric complaints [facility] Past Medical History Medical History Acute on chronic diastolic CHF (congestive heart failure) Afib Aortic valve disease Asthma CAD (coronary artery disease) Eczema Factor V Leiden Hypertension Obesity Pneumonia Sleep apnea TIA (transient ischemic attack) Surgical History Surgical History History of cardiac catheterization History of heart surgery single bypass to the Left anterior descending, 20 17 Moe Maze procedure also. History of heart valve replacement Aortic valve replacement for severe aortic stenosis, 2016 History of spinal fusion History of tubal ligation S/P aortic valve replacement with bioprosthetic valve Family History Family History Mother Stomach cancer of stomach cancer Uterine cancer Hypertension Father Atrial fibrillation Sudden Found at home on the floor Sibling Hypertension Factor 5 Leiden mutation, heterozygous DVT (deep venous thrombosis) Social History Social History (Updated 04/18/20 @ 08:41 by Malina Zamudio MD) Social History: Patient lives at home with daughter, Dominique. She designates her daughter Louisa as her surrogate MDM. Her PCP is Dr. Cason. She wishes to be listed as a Full Code. 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 August 2019. Smoking status: Never smoker Alcohol intake: never Substance use: never Substance use type: does not use Gender identity (if verbalized by the patient): Female Spiritual care concerns: No Agree to blood products: Yes Meds Home Medications and Allergies Home Medications Medication Instructions Recorded Confirmed Type Eliquis 5 mg PO BID 09/13/19 04/17/20 History Xolair 150 mg SUBCUT [id number] 09/13/19 04/17/20 History albuterol sulfate [Ventolin HFA] 2 puff INHALATION DAILY PRN 09/13/19 04/17/20 History escitalopram oxalate [Lexapro] 10 mg PO HS 09/13/19 04/17/20 History rosuvastatin [Crestor] 40 mg PO HS 09/13/19 04/17/20 History Advair HFA 2 puff INHALATION Q12H 01/03/20 04/17/20 History amlodipine 10 mg PO HS 01/03/20 04/17/20 History levothyroxine [Euthyrox] 50 mcg PO DAILY 04/17/20 04/17/20 History Allergies Allergy/AdvReac Type Severity Reaction Status Date / Time peanut Allergy Un
--- NOTE | 2020-04-18 08:46 | WPDMODSED ---
Moderate Sedation Note-Pt Data Patient Data Diagnosis: Symptomatic tachy-katherine syndrome, PAF, intermittent junctional rhythm, diastolic heart failure Present Complaint: BLACK, CHF Procedure to be performed/Plan: Conscious sedation possible venogram implant of a permanent dual-chamber pacemaker Allergies Allergy/AdvReac Type Severity Reaction Status Date / Time peanut Allergy Unknown Anaphylaxis Verified 11/01/19 19:02 tree nut Allergy Unknown Anaphylaxis Verified 11/01/19 19:02 walnut Allergy Unknown Anaphylaxis Verified 11/01/19 19:02 Home Medications Medication Instructions Recorded Confirmed Type Eliquis 5 mg PO BID 09/13/19 04/17/20 History Xolair 150 mg SUBCUT [id number] 09/13/19 04/17/20 History albuterol sulfate [Ventolin HFA] 2 puff INHALATION DAILY PRN 09/13/19 04/17/20 History escitalopram oxalate [Lexapro] 10 mg PO HS 09/13/19 04/17/20 History rosuvastatin [Crestor] 40 mg PO HS 09/13/19 04/17/20 History Advair HFA 2 puff INHALATION Q12H 01/03/20 04/17/20 History amlodipine 10 mg PO HS 01/03/20 04/17/20 History levothyroxine [Euthyrox] 50 mcg PO DAILY 04/17/20 04/17/20 History Sedation/Anesthesia: No previous sedation/anesthesia problems (including family history). [facility] Past Medical History Medical History Acute on chronic diastolic CHF (congestive heart failure) Afib Aortic valve disease Asthma CAD (coronary artery disease) Eczema Factor V Leiden Hypertension Obesity Pneumonia Sleep apnea TIA (transient ischemic attack) Surgical History Surgical History History of cardiac catheterization History of heart surgery single bypass to the Left anterior descending, 20 17 Moe Maze procedure also. History of heart valve replacement Aortic valve replacement for severe aortic stenosis, 2016 History of spinal fusion History of tubal ligation S/P aortic valve replacement with bioprosthetic valve Family History Family History Mother Stomach cancer of stomach cancer Uterine cancer Hypertension Father Atrial fibrillation Sudden Found at home on the floor Sibling Hypertension Factor 5 Leiden mutation, heterozygous DVT (deep venous thrombosis) Social History Social History (Updated 04/18/20 @ 08:41 by Malina Zamudio MD) Social History: Patient lives at home with daughter, Dominique. She designates her daughter Louisa as her surrogate MDM. Her PCP is Dr. Cason. She wishes to be listed as a Full Code. 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 August 2019. Smoking status: Never smoker Alcohol intake: never Substance use: never Substance use type: does not use Gender identity (if verbalized by the patient): Female Spiritual care concerns: No Agree to blood products: Yes Mod Sed Physical Exam Physical Exam Pre Procedural Exam: Normal: Appearance, Eyes, Ears, Nose, Neck, Throat, Airway, Lungs, Heart Size, Heart Rate, Neuro Exam, Abdomen, Liver, Extremities and Skin (Left pectoral area appears free of infection or lesions.) and Variation: Heart Rhythm (Ectopic beats versus atrial fibrillation) Hours since solid foods: 12 Hours since liquid intake: 12 Internal Medicine - PN: Obj Da Vital Signs Vital Signs: Vital Signs - 24 hr 04/18/20 07:51 Temperature 98.9 F Pulse Rate 61 Respiratory Rate 20 Blood Pressure 146/58 H Pulse Oximetry 100 Labs CBC & Chem 7: 04/18/20 07:31 04/18/20 07:31 Labs: Laboratory Results - last 24 hr 04/18/20 04/18/20 04/18/20 07:31 07:31 07:31 WBC 8.4 RBC 4.72 Hgb 13.2 Hct 40.3 MCV 85.4 MCH 28.0 MCHC 32.8 RDW 14.3 Plt Count 194 MPV 10.5 H Immature Gran % (Auto) 0.2 Neut % (Auto) 61.8 Lymph % (Auto) 19.3 Wood % (A
--- NOTE | 2020-04-18 11:55 | ECG_ITS ---
Measurements Intervals [place] Rate: 60 P: -84 [place]: 199 QRS: 139 QRSD: 154 T: 49 QT: 483 QTc: 483 Interpretive Statements ELECTRONIC ATRIAL PACEMAKER RIGHT BUNDLE BRANCH BLOCK LEFT POSTERIOR FASCICULAR BLOCK ABNORMAL ECG Electronically Signed On 04-18-2020 13:20:40 CDT by Domo Zeng D.O.
--- NOTE | 2020-04-18 11:59 | PM.PROC ---
Procedure Note - Detailed Date of procedure: 04/18/20 Pre-op diagnosis: Sick Sinus Syndrome Sick sinus syndrome, tachybrady Alan syndrome Post-op diagnosis: same Procedure performed: conscious sedation Venogram Placement of a permanent dual pacemaker Description of procedure: PROCEDURE PERFORMED: Conscious sedation Venogram Placement of a permanent dual-chamber pacemaker SITE: Left prepectoral area MEDICATIONS GIVEN IN MOLDER SETTER: Ancef 1 gram IV piggyback CONSCIOUS SEDATION: Assessment: The patient has no history of anesthesia problems. The patient's oropharynx is clear. The patient was deemed to be a good candidate for conscious sedation. The patient had continuous hemodynamic monitoring during the procedure. Start time: 0 911 Completion time: 1138 Total conscious sedation time: 147 min Medications: Versed 6 mg and fentanyl 150 mcg IVP Trained observer: Nayeli Terrazas RN Outcome: The patient tolerated the procedure well with no complications. PROCEDURE: After informed consent , the patient was brought to the skilled labor and the left prepectoral area was prepped and draped in usual fashion . The patient received preop antibiotic with Ancef 1 g IV and conscious sedation . The left prepectoral area was anesthetized with lidocaine. A venogram was performed which showed a somewhat tortuous left subclavian, but patent. Next a skin incision was made and carried down to the prepectoral fascia. Hemostasis was obtained using electrocautery . The pacer pocket was formed. The left subclavian vein was accessed with the micropuncture technique, and a J-tipped guide wire was passed into the inferior vena cava under fluoroscopic guidance. Using a 7 Tongan sheath a 2nd wire was introduced into the IVC. The sheath was withdrawn. Another 7 Tongan sheath was placed over 1 wire and the right ventricular lead was passed into the right atrium through the tricuspid valve into the right ventricle. This was somewhat challenging as the patient's anatomy caused the body of the lead to prolapse into the right atrium and the inferior vena cava. I attempted septal placement but the lead was not stable so eventually opted for placement the apex after curving and styling the stylet to suit her anatomy. When suitable sensing and pacing thresholds were obtained, it was screwed into place. No extra cardiac stimulation was obtained using 10 volts. The sheath was withdrawn and the lead sutured to the prepectoral fascia using 2 0 silk over the sleeve. Next, another 7 Tongan safety sheath was passed over the second wire, the wire withdrawn, and the right atrial lead was passed into the inferior vena cava under fluoroscopic guidance. Right atrial lead was then pulled back to the level of the right atrium and manipulated into the right atrial appendage . It was extremely difficult to find good sensing and pacing anywhere in the right atrium. In the appendage sensing was poor and there was far field sensing. I tried high, mid and low right atrium, anterior, lateral and multiple other locations. The best sensing I could find anywhere was a P-waves sensing of less than 1 mV and pacing was intermittent and high voltage if we could get it all. I then opted to try a tined lead and has similar results although eventually I was able to find a location that had good pacing despite less than optimal P-wave sensing. When suitable sensing and pacing thresholds were obtained , it was screwed into place . No extra cardiac stimulation was obtained using 10 volts. The sheath was withdrawn. This lead was secured to the prepectoral fascia using 2-0 silk over it's sleeve. The pocket was cleansed with antibiotic containing solution . The pulse generator was introduced into the operative field, and both leads were secured into the generator . A gentle tug showed the leads were secured. The device was introduced into the pocket. The subcutaneous tissues were closed
--- NOTE | 2020-04-18 12:00 | SUR.PHASEII ---
BEGIN PHASE II RECOVERY. RETURNS FROM CCL TO PREPRESS PROOFER 5 S/P DUAL CHAMBER PPM PLACEMENT L. UPPER CHEST BY DR. LUNA. DROWSY, EASILY AROUSABLE ON ARRIVAL. VSS. DENIES PAIN OR SOB. REVIEWED BEDREST AND L. ARM MOVEMENT RESTRICTIONS W/ PT. VOICED UNDERSTANDING. POST PPM EKG AND CXR TO BE COMPLETED. WILL MONITOR.
--- NOTE | 2020-04-18 13:00 | SUR.PHASEII ---
END PHASE II RECOVERY. POST PPM EKG AND CXR COMPLETED. REMAINS DROWSY, BUT EASILY AROUSABLE TO VOICE. VSS. SATS NOTED TO DROP TO 87-88% ON ROOM AIR WHEN DOZING. L. UPPER CHEST AQUACELL DRESSING C/D/I. SITE WITHOUT REDNESS OR SWELLING. HAS PRESSURE DRESSING ON OVER TOP OF AQUACELL. L. RADIAL PULSE STRONG, SENSATION AND MOVEMENT AND CAP REFILL WNL L. HAND. ARM IMMOBILIZER IS ON L. ARM. TOLERATING WELL. BEDREST IS UNTIL 0800 04/[address] LUNA HAS BEEN TO BEDSIDE TO SEE PT AT 1225 AND HAS CALLED PT'S DAUGHTER TO UPDATE. SEE PCS FOR FURTHER DOCUMENTATION. PT. BEING ADMITTED TO EXTENDED RECOVERY S/P OUTPATIENT PROCEDURE. TO REMAIN IN DEALER DEVELOPMENT MANAGER 5. WILL CONTINUE TO MONITOR.
--- NOTE | 2020-04-18 13:01 | ADMGEN ---
This patient, Kalli Cannon, was admitted to [facility] EXTENDED RECOVERY S/P OUTPATIENT PROCEDURE. REMAINS IN BRANCH ACCOUNT MANAGER 5 FROM PHASE II RECOVERY. HAS DUAL CHAMBER PPM PLACED TO L. UPPER CHEST BY DR. LUNA TODAY. DRESSING TO SITE C/D/I. ARM IMMOBILIZER ON L. ARM. DENIES PAIN AT THIS TIME. IS DROWSY POST OP. WILL CONTINUE TO MONITOR. Patient/family oriented to hospital policies and general routines including ID bracelet, bed and alarms, visiting hours, pain management, procedures, bathroom and other care routines, personal items, smoking policy, room service/diet, and visiting hours. Valuables list has been completed. Information on how to activate the Rapid Response Team has been discussed. Patient/Family are encouraged to report perceived risks to care and to ask questions if they do not understand what they are told or what they should do.
[2020-04-18] MEDS: ESCITALOPRAM OXALATE 10 MG TABLET PO (20:19)
[2020-04-18] MEDS: ROSUVASTATIN 10 MG TABLET 40 MG PO (20:19)
[2020-04-18] MEDS: FLUTICASONE/SALMETEROL 230-21 MCG INHALER 1 PUFF 2 PUFF INHALATION (20:53)
[2020-04-19] VITALS (10 sets, daily range): BP systolic 131–137; BP diastolic 57–74; PULSE 60–74; RESP 14–20; TEMP 37.2; O2SAT 94–100
[2020-04-19] MEDS: LEVOTHYROXINE SODIUM 50 MCG TABLET PO (05:48)
--- NOTE | 2020-04-19 12:10 | PM.DS ---
DS: Admitting Diagnosis Admitting Diagnosis Admitting Diagnosis: Sick sinus syndrome DS: Discharge Diagnosis Discharge Diagnosis (1) Tachy-katherine syndrome: Code(s): I49.5 - Sick sinus syndrome Status: Acute Assessment and Plan: Sick sinus syndrome status post Medtronic dual-chamber pacemaker placement on 04/18/[address] Zamudio. Chest x-ray without pneumothorax. Pacemaker functioning normally as programmed on day of discharge. Noted to have small P-waves this was noted at implant. DS: Summary Hospital Course Reason for hospitalization: Sick sinus syndrome site, tachy-katherine syndrome for pacemaker implantation. Hospital Course: 69-year-old female with tachy-katherine syndrome admitted to outpatient procedure for pacemaker implantation. Medtronic dual-chamber pacemaker is placed by Dr Zamudio on 04/18/2020. It was a long procedure due to her previous Maze procedure. There was difficulty obtaining good sensing and pacing in the right atrial lead. She was monitored overnight. Her left arm was immobilized. Chest x-ray revealed no pneumothorax. Pacemaker was functioning normally on day of discharge. She was discharged home in stable and pain-free condition. Status at Discharge Functional status at discharge: independent ambulation Overall status at discharge: patient is back to baseline Time Spent with Patient Time attestation: Total time spent providing and/or coordinating discharge services: 32 minutes. Time spent in the room with discharge instructions, discharge orders as well as discharge summary. Questions were answered to her satisfaction. Time spent: Greater than 30 minutes Exam Narrative: Exam Narrative: Up in chair ready for discharge. Const: General: comfortable and no acute distress Orientation/consciousness: patient oriented x3 HENMT: Mouth: Yes moist mucous membranes Eyes: EOM: EOMs intact bilaterally Neck: Neck: supple Chest: Other: Left subclavian Aquacel dressing intact. No swelling or bleeding. No drainage on the dressing. No ecchymosis. Immobilizer in place. Resp: Effort & Inspection: normal respiratory effort Auscultation: clear to auscultation bilaterally Cardio: Rate: regular rate Rhythm: regular rhythm Peripheral pulses: Peripheral pulses 2+ throughout GI: Inspection: non-distended Skin: General skin exam: normal color and no rashes or lesions noted Neuro: General: No confusion Cranial nerves: Yes Normal hearing present Speech: normal speech Motor exam (neuro): Normal motor muscle tone present throughout Extrem: Right lower extremity: no edema Left lower extremity: no edema Psych: Mental Status: mental status grossly normal Affect: normal affect Discharge Plan Discharge Patient Disposition: Home, Self-Care Discharge Instructions: ACTIVITY: No driving until you are seen in the office for your incision check. No lifting, pushing or pulling more than 5 pounds with left arm for 6 WEEKS No lifting left arm above shoulder height for 6 WEEKS Wear immobilizer except for bathing, getting dressed or eating meals for 2 weeks. You are to wear it especially at night. You may shower AFTER you are seen for incision check on April 26 but no tub baths, swimming pool or hot tub for 1MONTH FOLLOW-UP: Follow up with [facility], [place] office at [facility] [address] to have dressing removed, incision checked and pacemaker checked on April 26, 2020 at 10:30 a.m.. Please arrive by 10:15 a.m. for your appointment. Bring insurance card and photo ID. with Pao Ledesma in the [facility] on May 31, 2020 at 2:30 p.m.. Please arrive by 2:15 p.m. for your appointment. Bring photo ID and insurance card. with Dr Barrera as previously scheduled on June 21, 2020 at 9:45 a.m.. Please arrive by 9:30 a.m. for your appointment. Bring photo ID, insurance card(s) and current medication l
--- NOTE | 2020-04-19 13:45 | PC.NURSE ---
1200-pt given D/C orders and instruction. Questions answered and verbalized understanding. AOx4. Site soft, no evidence of bleeding or hematoma noted. PIV removed intact. Taken via wheelchair to waiting vehicle. No evidence of distress noted or verbalized before departure.
== END 2020-04-19 12:00 | disposition home or self-care (01) ==
LOC: ANHCATHLAB 06:56 → ANHCPC 13:42
PROVIDERS: PCP Student in an Organized Health Care Education/Training Program; Visit Provider Internal Medicine Cardiovascular Disease
PROC: 0JH606Z Insertion of Pacemaker, Dual Chamber into Chest Subcutaneous Tissue and Fascia, Open Approach (ICD-10-PCS; CPT 33208; principal; 2020-04-18 08:30)
DX: I49.5 Sick sinus syndrome (principal); I48.0 Paroxysmal atrial fibrillation; I11.0 Hypertensive heart disease with heart failure; I50.33 Acute on chronic diastolic (congestive) heart failure; I49.8 Other specified cardiac arrhythmias; I25.10 Atherosclerotic heart disease of native coronary artery without angina pectoris; D68.51 Activated protein C resistance; G47.30 Sleep apnea, unspecified; Z86.73 Personal history of transient ischemic attack (TIA), and cerebral infarction without residual deficits; E66.9 Obesity, unspecified; Z68.30 Body mass index [BMI] 30.0-30.9, adult; Z98.1 Arthrodesis status; Z95.2 Presence of prosthetic heart valve; Z95.1 Presence of aortocoronary bypass graft; Z79.01 Long term (current) use of anticoagulants
CPT/HCPCS: 33208; 36415; 71045; 71046; 80048; 85025; 85610; 87635; 93005; 94640; A4565; A9270; C1779; C1785; C1894; C1898; C9803; J0690; J2250; J3010; J7040; U0003

== ENCOUNTER 2020-08-09 09:58 | Outpatient (CLI) | payer MEDICARE, SELFPAY ==
--- NOTE | ~2020-08-09 | US_ITS ---
EXAMINATION: US venous doppler [facility] DATE: 08/09/2020 10:37 INDICATION: Left lower limb pain TECHNIQUE: Agudelo scale images without and with compression and Doppler images of the left lower extrem ity veins were obtained. COMPARISON: None FINDINGS: The left common femoral vein, profunda femoral vein, femoral vein, popliteal vein, peroneal trunk, posterior tibial veins, and greater saphenous vein are patent. IMPRESSION: 1. Patent left lower extremity veins. No evidence of deep venous thrombosis. Reviewed, dictated and finalized at location A.
== END 2020-08-09 09:59 | disposition home or self-care (01) ==
LOC: ANHIMG 10:08
PROVIDERS: PCP Student in an Organized Health Care Education/Training Program; Visit Provider Student in an Organized Health Care Education/Training Program
DX: M79.662 Pain in left lower leg (principal); M79.89 Other specified soft tissue disorders
CPT/HCPCS: 93971

== ENCOUNTER 2021-02-07 07:14 | Observation (INO) | payer MEDICARE, SELFPAY ==
[2021-02-07] VITALS (7 sets, daily range): BP systolic 120–156; BP diastolic 44–67; PULSE 59–62; RESP 16–20; TEMP 36.5–37.1; O2SAT 95–98; BMI 31.8
--- NOTE | ~2021-02-07 | US_ITS ---
EXAMINATION: US abdomen limited DATE: 02/07/2021 16:57 INDICATION: Right flank pain. TECHNIQUE: Multiple grayscale and Doppler ultrasound images of the abdomen were obtained. COMPARISON: CT abdomen and pelvis 02/07/2021 FINDINGS: The visualized portions of the head and body of the pancreas are normal. There is an 8 mm c yst in the liver. There is normal flow in main portal vein. The gallbladder is normal in size. No gal lstones or gallbladder wall thickening. There was no sonographic Doyle sign. The common duct is norm al and measures 3 mm. Right kidney is normal. IMPRESSION: 1. No etiology for the patient's symptoms. Reviewed, dictated and finalized at location A.
--- NOTE | ~2021-02-07 | CT_ITS ---
EXAMINATION: CT abdomen pelvis w con INDICATION: Abdominal and right flank pain TECHNIQUE: Computed tomographic images of the abdomen and pelvis were obtained after the administrati on of 100 cc of Omnipaque 350 intravenous contrast. The dose-length product (DLP) was 581.99 mGy-cm. Automated exposure control and iterative reconstruction technique were employed. COMPARISON: None available FINDINGS: Minimal dependent atelectasis is present in the lung bases. The heart size is normal. There is an 8 mm cyst in the right hepatic lobe. The liver is diffusely low in attenuation when compared w ith the spleen, consistent with hepatic steatosis. The spleen, pancreas, gallbladder, and adrenal gla nds are normal. There is a 1.6 cm cyst in the lower pole of the left kidney. The right kidney is unre markable There is calcified atherosclerosis of the aorta and many of the other arteries. No pathologi yong enlarged abdominal or pelvic lymph nodes are identified. There is no free intraperitoneal gas o r evidence of bowel obstruction. Colonic diverticulosis is present without evidence of diverticulitis . There are bilateral L5 pars six. A tiny fat-containing umbilical hernia is noted. IMPRESSION: 1. No CT correlate for the patient's symptoms. 2. Diffuse hepatic steatosis. Reviewed, dictated and finalized at location B.
--- NOTE | ~2021-02-07 | XR_ITS ---
EXAMINATION: XR chest 1V portable INDICATION: Cough TECHNIQUE: Portable AP chest at 1211 hours COMPARISON: 04/19/2020 FINDINGS: Cardiomegaly is noted. There are changes of prior cardiac surgery. There are minimal opacit ies of the mid and lower lung zones. No pleural effusion or pneumothorax is identified. A dual-lead c ardiac pacemaker of the left chest wall ends with leads in expected locations. IMPRESSION: 1. Minimal opacities of the mid and lower lung zones which could reflect atelectasis versus pneumonia versus pulmonary edema. Reviewed, dictated and finalized at location B. IMPRESSION: 1. Minimal opacities of the mid and lower lung zones which could reflect atelec tasis versus pneumonia versus pulmonary edema.
--- NOTE | 2021-02-07 07:35 | ED.GENADULT ---
HPI - General Adult General Chief complaint: Abdominal Pain Stated complaint: back pain Time Seen by Provider: 02/07/21 07:17 Source: RN notes reviewed History of Present Illness HPI narrative: Patient presents to emergency department from home for right flank pain. Patient states symptoms began this morning with pain that is located the right flank and radiates around to the right side pain is described as sharp and stabbing and comes in waves associate with nausea and vomiting. Patient states she took Tylenol at home for the pain with no relief. She denies any fevers or chills chest pain shortness of breath diarrhea or any other symptoms Related Data Home Medications Medication Instructions Recorded Confirmed Eliquis 5 mg PO BID 09/13/19 04/17/20 Xolair 150 mg SUBCUT [id number] 09/13/19 04/17/20 albuterol sulfate [Ventolin HFA] 2 puff INHALATION DAILY PRN 09/13/19 04/17/20 escitalopram oxalate [Lexapro] 10 mg PO HS 09/13/19 04/17/20 rosuvastatin [Crestor] 40 mg PO HS 09/13/19 04/17/20 Advair HFA 2 puff INHALATION Q12H 01/03/20 04/17/20 amlodipine 10 mg PO HS 01/03/20 04/17/20 levothyroxine [Euthyrox] 50 mcg PO DAILY 04/17/20 04/17/20 Allergies Allergy/AdvReac Type Severity Reaction Status Date / Time peanut Allergy Unknown Anaphylaxis Verified 02/07/21 07:28 tree nut Allergy Unknown Anaphylaxis Verified 02/07/21 07:28 walnut Allergy Unknown Anaphylaxis Verified 02/07/21 07:28 Review of Systems Review of Systems: Narrative: Gen.: Denies fevers or chills ENT: Denies congestion Respiratory: Denies shortness of breath or cough CV: Denies chest pain or palpitations GI: See HPI denies burning, urgency, frequency or hematuria Musculoskeletal: Denies back pain or muscle pain Neuro: Denies numbness, tingling, weakness or focal weakness Skin: Denies rash Except as documented, all other systems reviewed and negative [facility] Past Medical History Medical History (Updated 02/07/21 @ 12:36 by Michael Lilly DO) Acute on chronic diastolic CHF (congestive heart failure) Afib Aortic valve disease Asthma CAD (coronary artery disease) Eczema Factor V Leiden Hypertension Obesity Pneumonia Sleep apnea TIA (transient ischemic attack) Surgical History Surgical History History of cardiac catheterization History of heart surgery single bypass to the Left anterior descending, 20 17 Moe Maze procedure also. History of heart valve replacement Aortic valve replacement for severe aortic stenosis, 2016 History of spinal fusion History of tubal ligation S/P aortic valve replacement with bioprosthetic valve Family History Family History Mother Stomach cancer of stomach cancer Uterine cancer Hypertension Father Atrial fibrillation Sudden Found at home on the floor Sibling Hypertension Factor 5 Leiden mutation, heterozygous DVT (deep venous thrombosis) Social History Social History Social History: Patient lives at home with daughter, Dominique. She designates her daughter Louisa as her surrogate MDM. Her PCP is Dr. Cason. She wishes to be listed as a Full Code. 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 August 2019. Smoking status: Never smoker Alcohol intake: never Substance use: never Substance use type: does not use Gender identity (if verbalized by the patient): Female Spiritual care concerns: No Agree to blood products: Yes Exam Narrative: Exam Narrative: APPEARANCE: No acute distress, nontoxic, resting in bed EYES: EOMI HEENT: Normocephalic, atraumatic, OMM RESPIRATORY: No respiratory distress Clear to auscultation bilaterally with no rhonchi wheezing or rales. CARDIOVASCULAR: Regular rate and rhythm without murmurs rubs or gallops. AB
[2021-02-07] MEDS: SODIUM CHLORIDE 0.9% IV 1,000 ML 999 ML IV CONT (07:49)
[2021-02-07] MEDS: ONDANSETRON INJ 4 MG/2 ML VIAL IV PUSH ×2 (07:52→14:07)
[2021-02-07] MEDS: MORPHINE SULFATE (*CRX) 4 MG/ML INJ IV PUSH (07:52)
[2021-02-07 07:56] LABS: Basophils Absolute Auto 0.1 K/mm3 (0.0-0.1); Basophils Percent Auto 1.2 % (0.2-1.2); Eosinophils Absolute Auto 0.4 K/mm3 (0-0.3); Eosinophils Percent Auto 5.3 % (0-4.4); Hematocrit 39.5 % (37.0-47.0); Hemoglobin 12.8 g/dL (12.0-15.0); Immature Granulocyte Absolute 0.05 K/mm3 (0.00-0.031); Immature Granulocyte Percent A 0.6 % (0-0.5); Lymphocytes Absolute Auto 1.82 K/mm3 (0.9-3.2); Lymphocytes Percent Auto 22.6 % (18.3-44.2); Mean Corpuscular HGB Conc 32.4 g/dl (32-36); Mean Corpuscular Hemoglobin 28.3 pg (26-34); Mean Corpuscular Volume 87.2 fl (80-100); Mean Platelet Volume 10.1 fl (7.4-10.4); Monocytes Absolute Auto 0.7 K/mm3 (0.1-0.6); Monocytes Percent Auto 8.2 % (2.6-8.5); Neutrophils Percent Auto 62.1 % (45.5-73.1); Platelet Count Result 212 k/mm3 (150-375); Red Blood Count 4.53 M/mm3 (4.2-5.4); Red Cell Distribution Width 13.6 % (11.5-14.5); White Blood Count 8.1 K/mm3 (4.5-10.0)
[2021-02-07 07:59] LABS: Add Urine Microscopic? YES; Appearance Urine Cloudy (Clear); Bacteria Urine Trace /hpf; Bilirubin Urine Negative (Negative); Blood Urine 1+ (Negative); Color Urine Yellow (Yellow); Glucose Urine UA Negative (Negative); Ketones Urine Negative (Negative); Leukocyte Esterase Ur Trace LEU/UL (Negative); Mucus Urine Rare /lpf; Nitrate Urine Negative (Negative); Protein Urine 2+ mg/dL (Negative); RBC Urine 0-2 /hpf (0-2); Specific Grav Ur 1.017 (1.001-1.035); Squamous Epithelial Cell Urine Occasional /hpf (Few); Urobilinogen Urine Negative mg/dL (<2.0)
[2021-02-07 08:05] LABS: Alanine Aminotransferase 34 U/L (4-35); Alkaline Phosphatase 88 U/L (38-126); Anion Gap 8 mmol/L (8-16); Aspartate Amino Transferase 44 U/L (14-36); Bilirubin,Total 0.4 mg/dL (0.2-1.3); Blood Urea Nitrogen 21 mg/dL (7-17); Calcium 9.7 mg/dL (8.4-10.2); Carbon Dioxide 25 mmol/L (22-30); Chloride 108 mmol/L (98-107); Estimated CRCL calculation 39 ml/min; Estimated Glomerular Filt Rate 44; Glucose 121 mg/dL (65-105); Lipase 158 U/L (23-300); Potassium 4.1 mmol/L (3.4-5.0); Sodium 141 mmol/L (137-145)
[2021-02-07] MEDS: PROMETHAZINE HCL 25 MG/ML AMPUL 12.5 MG IV PUSH (09:00)
--- NOTE | 2021-02-07 11:06 | PC.NURSE ---
1030 Pt resting on cart HOB elevated, pt and daughter updated on POC by Dr. Lilly, awaiting dispo. Call light within reach
--- NOTE | 2021-02-07 12:07 | PC.NURSE ---
1200 Dr. Lilly at bedside for reassessment and update pt and family on POC. Pt continuing to vomit, reports improved R flank pain. Placed on 2L NC (desats to upper 80's on RA, hx sleep apnea). LBM this am, soft
--- NOTE | 2021-02-07 14:30 | PC.NURSE ---
This patient, Kalli Cannon, was admitted to 3 Med Surg Room 301-01. Patient/family oriented to hospital policies and general routines including ID bracelet, bed and alarms, visiting hours, pain management, procedures, bathroom and other care routines, personal items, smoking policy, room service/diet, and visiting hours. Report received Lucho ARAIZA. Information on how to activate the Rapid Response Team has been discussed. Patient/Family are encouraged to report perceived risks to care and to ask questions if they do not understand what they are told or what they should do.
[2021-02-07] MEDS: SODIUM CHLORIDE 0.9% IV 1,000 ML 80 ML IV CONT (15:20)
--- NOTE | 2021-02-07 16:10 | PM.IMHP ---
H&P: HPI History of Present Illness Date/Time: 02/07/21 16:10 this is a 70-year-old female patient who has a past medical history of having atrial fibrillation with a dual-chamber pacemaker. She has had no prior GI history. She had a colonoscopy 1 time which was normal and then she had Cologuard this last time which was reportedly normal. The emergency with some right flank pain today. Started this morning. It radiates to her right side but is not equivocal to food consumption are motion. The patient took some Tylenol without any relief. She also had nausea and vomiting. She said there are no other sick contacts at home. And she has no diarrhea. No fever chills. The patient stated that she does not take any and said because she is on blood thinners. Urine was negative for UTI. Disease of the mid and lower lung zones which could reflect atelectasis versus pneumonia versus pulmonary edema. However the patient does not have any fever or chills and no cough. Least likely that this is pneumonia. Abdominal pelvis CT was read as no acute correlate for the patient's symptoms. Diffuse hepatic steatosis. The patient was given morphine in the emergency room but that it caused her to have an emesis after that. The patient is getting a clear liquid diet and appears to be tolerating that very well. And given Zofran and Phenergan in the emergency room. At this point she has no further nausea and feels that she could probably take her oral medication. The patient denies any hematemesis or any blood in her stool. The patient is being admitted to observation on the date of service of 02/07/2021 Chief Complaint: Abdominal pain with nausea and vomiting Review of Systems Review of Systems: All systems reviewed & are unremarkable except as noted in HPI and below Constitutional: Constitutional: Reports as per HPI and Reports no additional constitutional complaints Eyes: Eyes: Reports as per HPI and Reports no additional eye complaints ENT: Reports system reviewed and no additional complaints, except as documented and Reports Normal hearing present Cardiovascular: Cardiovascular: Reports no additional cardiovascular complaints Respiratory: Respiratory: Reports no additional respiratory complaints and Reports no additional respiratory complaints Gastrointestinal: Gastrointestinal: Reports as per HPI and Reports no additional gastrointestinal complaints Musculoskeletal: Musculoskeletal: Reports no additional musculoskeletal complaints Integumentary/Breasts: Skin/Breast: Reports system reviewed and no additional complaints, except as docu and Reports as per HPI Neurologic: Reports system reviewed and no additional complaints, except as documented, Reports as per HPI and Reports Normal hearing present Psychiatric: Psychiatric: Reports no additional psychiatric complaints and Reports as per HPI Endocrine: Endocrine: Reports no additional endocrine complaints Hematologic/Lymphatic: Hematologic/Lymphatic: Reports no additional hematologic/lymphatic complaints Allergic/Immunologic: Allergic/Immunologic: Reports no additional allergic/immunologic complaints [facility] Past Medical History Medical History (Updated 02/07/21 @ 16:31 by Sharona Hill NP) Acute on chronic diastolic CHF (congestive heart failure) Afib Aortic valve disease Asthma CAD (coronary artery disease) Depression Eczema Factor V Leiden Hyperlipidemia Hypertension Obesity Pacemaker Pneumonia Sleep apnea TIA (transient ischemic attack) Surgical History Surgical History History of cardiac catheterization History of heart surgery single bypass to the Left anterior descending, 20 17 Moe Maze procedure also. History of heart valve replacement Aortic valve replacement for severe aortic stenosis, 2016 History of spinal fusion History of tubal ligation S/P aortic valve replacement with bioprosthetic valve Family Histor
[2021-02-07] MEDS: lisinopriL 10 MG TABLET PO (21:54)
[2021-02-07] MEDS: SPIRONOLACTONE 12.5 MG TABLET PO (21:54)
[2021-02-07] MEDS: ESCITALOPRAM OXALATE 10 MG TABLET PO (21:54)
[2021-02-07] MEDS: amLODIPine BESYLATE 5 MG TABLET 10 MG PO (21:54)
[2021-02-07] MEDS: ROSUVASTATIN 10 MG TABLET 40 MG PO (21:54)
[2021-02-07] MEDS: APIXABAN 5 MG TABLET PO (21:55)
[2021-02-07] MEDS: PANTOPRAZOLE SODIUM IV 40 MG VIAL IV PUSH (21:55)
[2021-02-08] MEDS: SODIUM CHLORIDE 0.9% IV 1,000 ML 80 ML IV CONT (05:46)
[2021-02-08] MEDS: LEVOTHYROXINE SODIUM 75 MCG TABLET PO (05:47)
[2021-02-08 06:00] VITALS: BP 122/52; PULSE 60; RESP 20; TEMP 36.3; O2SAT 98
[2021-02-08 06:03] LABS: Basophils Absolute Auto 0.1 K/mm3 (0.0-0.1); Basophils Percent Auto 0.7 % (0.2-1.2); Eosinophils Absolute Auto 0.3 K/mm3 (0-0.3); Hematocrit 35.6 % (37.0-47.0); Hemoglobin 11.4 g/dL (12.0-15.0); Immature Granulocyte Absolute 0.03 K/mm3 (0.00-0.031); Immature Granulocyte Percent A 0.3 % (0-0.5); Lymphocytes Absolute Auto 1.91 K/mm3 (0.9-3.2); Lymphocytes Percent Auto 20.4 % (18.3-44.2); Mean Corpuscular Hemoglobin 28.4 pg (26-34); Mean Corpuscular Volume 88.6 fl (80-100); Mean Platelet Volume 10.9 fl (7.4-10.4); Monocytes Absolute Auto 0.8 K/mm3 (0.1-0.6); Monocytes Percent Auto 8.6 % (2.6-8.5); Neutrophils Absolute Auto 6.3 K/mm3 (1.3-6.7); Platelet Count Result 209 k/mm3 (150-375); Red Blood Count 4.02 M/mm3 (4.2-5.4); Red Cell Distribution Width 13.9 % (11.5-14.5); White Blood Count 9.4 K/mm3 (4.5-10.0)
[2021-02-08 06:21] LABS: Alanine Aminotransferase 27 U/L (4-35); Albumin Level 4.3 g/dL (3.5-5.1); Alkaline Phosphatase 70 U/L (38-126); Anion Gap 5 mmol/L (8-16); Aspartate Amino Transferase 31 U/L (14-36); Bilirubin,Total 0.3 mg/dL (0.2-1.3); Blood Urea Nitrogen 15 mg/dL (7-17); Calcium 9.1 mg/dL (8.4-10.2); Carbon Dioxide 28 mmol/L (22-30); Chloride 109 mmol/L (98-107); Estimated CRCL calculation 37 ml/min; Estimated Glomerular Filt Rate 40; Glucose 91 mg/dL (65-105); Potassium 4.2 mmol/L (3.4-5.0); Sodium 142 mmol/L (137-145)
[2021-02-08] MEDS: PANTOPRAZOLE SODIUM IV 40 MG VIAL IV PUSH (09:27)
[2021-02-08] MEDS: APIXABAN 5 MG TABLET PO (09:27)
[2021-02-08 14:00] VITALS: BP 131/49; PULSE 61; RESP 18; TEMP 36.6; O2SAT 96
--- NOTE | 2021-02-08 14:12 | PM.DS ---
DS: Admitting Diagnosis Admitting Diagnosis Admitting Diagnosis: flank pain DS: Summary Hospital Course Hospital Course: Patient is a 70-year-old female who presented emergency room for right flank pain that was pretty sudden, sharp and stabbing associated with nausea and vomiting. UA not very suspicious for UTI as it only had trace leuk esterase,neg nitrates, no blood and mild white blood cells 7-9. Urine culture showed mixed brenda, likely contaminant. Patient had no dysuria or frequency. Patient underwent a CT scan which showed no correlation for her symptoms but did show diffuse hepatic steatosis. She then had ultrasound Of the abdomen which showed a normal right kidney and no etiology for the patient's symptoms. Chest x-ray showed atelectasis versus pneumonia versus edema. Patient states she has had absolutely no shortness of breath, cough, fever or URI symptoms. Suspect this is atelectasis as she has no crackles or rhonchi. Patient was admitted to the hospitalist service overnight. Her nausea vomiting completely resolved and her pain continued to be less at 3/10. It did not seem to be muscular skeletal as it was not reproducible. She had no midline tenderness to her spine, bowel or bladder incontinence, or numbness or tingling. Day of discharge patient rates the pain a 3/10 and feeling much better. She has no further nausea or vomiting and denies any abdominal pain. She has absolutely no cough, chest pain, hematuria, or fevers. On exam she had no crackles or rhonchi. I suspect she has atelectasis and do not suspect edema or pneumonia at this time. She is going to follow-up with her primary care physician in 1-2 weeks but if she develops a cough, shortness of breath or dysuria she is going to contact them sooner or come back to the emergency room if she has severe pain or issues. Overall, the patient was feeling better and is eager for discharge. She was educated about the worrisome signs and symptoms come back to emergency room for and was discharged in stable condition. Status at Discharge Functional status at discharge: independent ambulation Overall status at discharge: patient is progressing back to baseline Time Spent with Patient Time attestation: Total time spent providing and/or coordinating discharge services:38 min Time spent: Greater than 30 minutes Exam Narrative: Exam Narrative: General: Well developed well nourished patient in NAD HEENT: normocephalic Neck: supple Neuro: Alert and oriented x4 CV:RRR Resp:CTA--no crackles or rhonchi Back: No pain to the midline spine. No reproducible pain to the right flank Abd: Soft, non distended. No pain to palpation. Positive bowel sounds Extremities: No swelling, erythema, or pain to palpation. DS: Data Data Completed and Pending Labs on day of discharge: Labs from last 24 hours 02/08/21 02/08/21 05:21 05:21 WBC 9.4 RBC 4.02 L Hgb 11.4 L Hct 35.6 L MCV 88.6 MCH 28.4 MCHC 32.0 RDW 13.9 Plt Count 209 MPV 10.9 H Immature Gran % (Auto) 0.3 Neut % (Auto) 67.0 Lymph % (Auto) 20.4 Irwin % (Auto) 8.6 H Eos % (Auto) 3.0 Baso % (Auto) 0.7 Lymph # (Auto) 1.91 Irwin # (Auto) 0.8 H Eos # (Auto) 0.3 Baso # (Auto) 0.1 Abs Immat Gran (auto) 0.03 Absolute Neuts (auto) 6.3 Absolute Nucleated RBC 0.0 Nucleated RBC % 0.0 Sodium 142 Potassium 4.2 Chloride 109 H Carbon Dioxide 28 Anion Gap 5 L BUN 15 D Creatinine 1.30 H Estim Creat Clear Calc 37 Estimated GFR 40 L Glucose 91 Calcium 9.1 Total Bilirubin 0.3 AST 31 ALT 27 Alkaline Phosphatase 70 Total Protein 7.0 Albumin 4.3 Discharge Plan Discharge Attending physician on discharge: Rosario Rey Discharging Clinician: Ivana Sung Patient Disposition: Home, Self-Care Activity: as tolerated Diet: heart healthy Discharge Instructions: -As discussed, please follow-up with your primary care physician a
== END 2021-02-08 16:15 | disposition home or self-care (01) ==
LOC: ANHED 12:36 → ANH3MEDSUR 15:34
PROVIDERS: Admitting Provider Internal Medicine; Emergency Provider Emergency Medicine; PCP Student in an Organized Health Care Education/Training Program; Visit Provider Physician Assistant
DX: R10.9 Unspecified abdominal pain (principal); R11.2 Nausea with vomiting, unspecified; I48.91 Unspecified atrial fibrillation; I11.0 Hypertensive heart disease with heart failure; I50.32 Chronic diastolic (congestive) heart failure; D68.51 Activated protein C resistance; Z95.3 Presence of xenogenic heart valve; Z79.01 Long term (current) use of anticoagulants; Z95.0 Presence of cardiac pacemaker
CPT/HCPCS: 36415; 71045; 74177; 76705; 80053; 81001; 83690; 85025; 87086; 87088; 94640; 96361; 96374; 96375; 96376; 99285; A9270; C9113; G0378; J0131; J2270; J2405; J2550; J7030; Q9967

== ENCOUNTER 2021-04-04 09:52 | Outpatient (CLI) | payer MEDICARE, SELFPAY ==
--- NOTE | ~2021-04-04 | DEXA_ITS ---
Bone Density Report Name: Kalli Cannon Age: 70 Sex: Female Ethnicity: White Date of : 1950 Indication: osteopenia; height loss; asthma or emphysema; Referring Provider: Kamla, Mk Study: Bone densitometry was performed. Exam Date: April 04, 2021 Accession number: [id number] Bone Density: Region BMD T-score Z-score Classification AP Spine (L1-L4) 0.860 -1.7 0.4 Osteopenia Femoral Neck (Left) 0.629 -2.0 -0.2 Osteopenia Total Hip (Left) 0.778 -1.3 0.2 Osteopenia Total Hip Bilateral Avg 0.770 -1.4 0.1 Osteopenia Femoral Neck (Right) 0.651 -1.8 0.0 Osteopenia Total Hip (Right) 0.761 -1.5 0.0 Osteopenia World Health Organization criteria for BMD impression classify patients as: Normal (T-score at or above -1.0), Osteopenia (T-score between -1.0 and -2.5), or Osteoporosis (T-score at or below -2.5). 10-year Fracture Risk(1): Major Osteoporotic Fracture 11% Hip Fracture 2.0% Reported Risk Factors: [place] (), Neck BMD=0.629, BMI=32.9 (1) FRAX(R) Version 3.08. Fracture probability calculated for an untreated patient. Fracture probability may be lower if the patient has received treatment. Previous Exams: Region Exam Age BMD T-score BMD Change BMD Change Date g/cm2 vs Baseline vs Previous AP Spine(L1-L4) 04/04/2021 70 0.860 -1.7 0.027(3.3%)* -0.010(-1.1%) 02/10/2018 67 0.870 -1.6 0.037(4.4%)* 0.037(4.4%)* 01/01/2017 66 0.833 -1.9 Total Hip(Left) 04/04/2021 70 0.778 -1.3 -0.059(-7.0%)* -0.039(-4.8%)* 02/10/2018 67 0.817 -1.0 -0.019(-2.3%) -0.019(-2.3%) 01/01/2017 66 0.837 -0.9 Total Hip(Right) 04/04/2021 70 0.761 -1.5 -0.038(-4.8%)* -0.042(-5.3%)* 02/10/2018 67 0.804 -1.1 0.004(0.5%) 0.004(0.5%) 01/01/2017 66 0.800 -1.2 *Denotes significance at 95% confidence level, LSC for AP Spine = 0.022 g/cm2, LSC for Total Hip = 0.027 g/cm2 Clinical Information Provided by Patient: Has the following medical conditions: Asthma or Emphysema Patient maximum height was 63 Menopause Age: 57 Does not regularly consume dairy products Onset of menses at age 13 Number of children 2 Impression: The patient has low bone mass, based on the Left Femoral Neck T-score. The patient has an estimated ten-year risk of hip fracture of 2% and an estimated ten-year risk of major fracture of 11%, based on the WHO FRAX algorithm. The BMD for the Total Hip(Left) decreased, changing by -4.8% s
--- NOTE | ~2021-04-04 | MM_ITS ---
EXAMINATION: MM screening cassia BI w tez HISTORY: Screening mammogram TECHNIQUE: Craniocaudal and mediolateral oblique 3-D tomosynthesis images were obtained and synthetic 2-D images were generated. CAD analysis was submitted and interpreted. COMPARISON: No prior mammogram is available for comparison at this institution. BREAST PARENCHYMAL COMPOSITION: There are scattered areas of fibroglandular density. FINDINGS: Scattered benign breast calcifications are again noted. There is no evidence of suspicious mass, calcification, or architectural distortion to suggest malignancy in either breast. There has be en no suspicious interval change. IMPRESSION: 1. No mammographic evidence of malignancy. 2. Recommend routine screening mammography in one year. BI-RADS Category 2: Benign finding(s). Reviewed, dictated and finalized at location A.
== END 2021-04-04 09:53 | disposition home or self-care (01) ==
LOC: ANHIMG 09:56
PROVIDERS: PCP Student in an Organized Health Care Education/Training Program; Visit Provider Student in an Organized Health Care Education/Training Program
DX: Z12.31 Encounter for screening mammogram for malignant neoplasm of breast (principal); Z78.0 Asymptomatic menopausal state; M85.88 Other specified disorders of bone density and structure, other site; M85.852 Other specified disorders of bone density and structure, left thigh; M85.851 Other specified disorders of bone density and structure, right thigh
CPT/HCPCS: 77063; 77067; 77080

== ENCOUNTER 2021-12-04 00:25 | Day surgery (SDC) | payer MEDICARE, SELFPAY ==
[2021-12-04 09:26] VITALS: BP 130/61; PULSE 86; RESP 22; TEMP 36.6; O2SAT 98
[2021-12-04] MEDS: LACTATED RINGERS 1,000 ML 150 ML IV CONT (09:40)
[2021-12-04] MEDS: GENTAMICIN 80MG/SOD CHL 50 ML 80 MG/50 ML BAG 100 MG IVPB (09:41)
--- NOTE | 2021-12-04 09:53 | WPDGICN ---
Assessment and Plan Assessment and plan (1) Positive colorectal cancer screening using Cologuard test: Code(s): R19.5 - Other fecal abnormalities Status: Acute Assessment and Plan: Patient had positive Cologuard test. For this reason screening colonoscopy will be performed today. GI Consult Note Consult date/time: 12/04/21 09:53 HPI: Kalli Cannon is a 71 year old female Presents for screening colonoscopy. Patient recently found to have positive Cologuard test. She reports that her weight appetite and bowel movements are normal. She denies abdominal pain. She has had no bleeding. Family history is noncontributory. Review of Systems Review of Systems: All systems reviewed & are unremarkable except as noted in HPI and below PMFSH Past Medical History Medical History (Updated 12/04/21 @ 09:54 by Keagan Llanes MD) Acute on chronic diastolic CHF (congestive heart failure) Afib Aortic valve disease Asthma CAD (coronary artery disease) Depression Eczema Factor V Leiden Hyperlipidemia Hypertension Obesity Pacemaker Pneumonia Sleep apnea TIA (transient ischemic attack) Surgical History Surgical History History of cardiac catheterization History of heart surgery single bypass to the Left anterior descending, 20 17 Moe Maze procedure also. History of heart valve replacement Aortic valve replacement for severe aortic stenosis, 2016 History of spinal fusion History of tubal ligation S/P aortic valve replacement with bioprosthetic valve Family History Family History Mother Stomach cancer of stomach cancer Uterine cancer Hypertension Father Atrial fibrillation Sudden Found at home on the floor Sibling Hypertension Factor 5 Leiden mutation, heterozygous DVT (deep venous thrombosis) Social History Social History (Updated 02/07/21 @ 16:21 by Sharona Hill NP) Social History: Patient lives at home with her 2 daughter daughters, Dominique and louisa. She designates her daughter Louisa as her surrogate MDM. Her PCP is Dr. Cason. She wishes to be listed as a Full Code. 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 August 2019. Lifelong nonsmoker and does not use any alcohol or illicit drugs. Smoking status: Never smoker Alcohol intake: never Substance use: never Substance use type: does not use Living arrangements: with family Gender identity (if verbalized by the patient): Female Spiritual care concerns: No Agree to blood products: Yes Meds Home Medications and Allergies Home Medications Medication Instructions Recorded Confirmed Type Eliquis 5 mg PO Q12H 09/13/19 11/22/21 History Xolair 150 mg SUBCUT [id number] 09/13/19 11/22/21 History albuterol sulfate [Ventolin HFA] 2 puff INHALATION Q4-6H PRN 09/13/19 11/22/21 History escitalopram oxalate [Lexapro] 10 mg PO HS 09/13/19 11/22/21 History rosuvastatin [Crestor] 40 mg PO HS 09/13/19 11/22/21 History amlodipine 10 mg PO DAILY 01/03/20 11/22/21 History budesonide-formoterol [Symbicort] 2 puff INHALATION BID 02/07/21 11/22/21 History levothyroxine [Euthyrox] 75 mcg PO 0630 02/07/21 11/22/21 History lisinopril 10 mg PO HS 02/07/21 11/22/21 History spironolactone 12.5 mg PO DAILY 02/07/21 11/22/21 History triamcinolone acetonide 1 applic TOPICAL TID PRN 11/22/21 11/22/21 History Allergies Allergy/AdvReac Type Severity Reaction Status Date / Time tree nut Allergy Unknown Anaphylaxis Verified 12/04/21 09:25 walnut Allergy Unknown Anaphylaxis Verified 12/04/21 09:25 Vital Signs Vital Signs - 24 hr 12/04/21 09:26 Temperature 97.8 F Pulse Rate 86 Respiratory Rate 22 H Blood Pressure 130/61 Pulse Oximetry 98 Exam Narrative: Physical exam reveals patient be alert. Vital signs stable. HEENT
--- NOTE | 2021-12-04 10:05 | WPDANESEPPF ---
Anes - Initial Pre Proc Eval Procedure: Operation Date: 12/04/21 10:45 Proposed Procedures p Colonoscopy - Keagan Llanes MD Date/Time: 12/04/21 10:05 Surgeon: Keagan Llanes MD Pre Op Diagnosis: positive cologuard Patient Data Age: 71 Gender: F Height: 1.6 m Weight: 78.3 kg Last Vital Signs Temp 97.8 F 12/04/21 09:26 Pulse 86 12/04/21 09:26 Resp 22 H 12/04/21 09:26 BP 130/61 12/04/21 09:26 Pulse Ox 98 12/04/21 09:26 Allergies Allergy/AdvReac Type Severity Reaction Status Date / Time tree nut Allergy Unknown Anaphylaxis Verified 12/04/21 09:25 walnut Allergy Unknown Anaphylaxis Verified 12/04/21 09:25 Home Medications Medication Instructions Recorded Confirmed Type Eliquis 5 mg PO Q12H 09/13/19 11/22/21 History Xolair 150 mg SUBCUT [id number] 09/13/19 11/22/21 History albuterol sulfate [Ventolin HFA] 2 puff INHALATION Q4-6H PRN 09/13/19 11/22/21 History escitalopram oxalate [Lexapro] 10 mg PO HS 09/13/19 11/22/21 History rosuvastatin [Crestor] 40 mg PO HS 09/13/19 11/22/21 History amlodipine 10 mg PO DAILY 01/03/20 11/22/21 History budesonide-formoterol [Symbicort] 2 puff INHALATION BID 02/07/21 11/22/21 History levothyroxine [Euthyrox] 75 mcg PO 0630 02/07/21 11/22/21 History lisinopril 10 mg PO HS 02/07/21 11/22/21 History spironolactone 12.5 mg PO DAILY 02/07/21 11/22/21 History triamcinolone acetonide 1 applic TOPICAL TID PRN 11/22/21 11/22/21 History Patient hx anesthesia problems: none Family hx anesthesia problems: none Results Review: All pre-operative results and documents have been reviewed as part of the pre-operative evaluation. [facility] Past Medical History Medical History (Updated 12/04/21 @ 09:54 by Keagan Llanes MD) Acute on chronic diastolic CHF (congestive heart failure) Afib Aortic valve disease Asthma CAD (coronary artery disease) Depression Eczema Factor V Leiden Hyperlipidemia Hypertension Obesity Pacemaker Pneumonia Sleep apnea TIA (transient ischemic attack) Surgical History Surgical History History of cardiac catheterization History of heart surgery single bypass to the Left anterior descending, 20 17 Moe Maze procedure also. History of heart valve replacement Aortic valve replacement for severe aortic stenosis, 2016 History of spinal fusion History of tubal ligation S/P aortic valve replacement with bioprosthetic valve Family History Family History Mother Stomach cancer of stomach cancer Uterine cancer Hypertension Father Atrial fibrillation Sudden Found at home on the floor Sibling Hypertension Factor 5 Leiden mutation, heterozygous DVT (deep venous thrombosis) Social History Social History (Updated 02/07/21 @ 16:21 by Sharona Hill NP) Social History: Patient lives at home with her 2 daughter daughters, Dominique and louisa. She designates her daughter Louisa as her surrogate MDM. Her PCP is Dr. Cason. She wishes to be listed as a Full Code. 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 Lifelong nonsmoker and does not use any alcohol or illicit drugs. Smoking status: Never smoker Alcohol intake: never Substance use: never Substance use type: does not use Living arrangements: with family Gender identity (if verbalized by the patient): Female Spiritual care concerns: No Agree to blood products: Yes Anes - Eval Final PreProcedure Day of Procedure 12/04/21 10:05 Patient weight: obese Heart: regular rate and rhythm Lungs: clear to auscultation Airway: Mallampati scale class II Neurological: alert and oriented Last oral intake: >/= 8 hours ASA classification: III Emergent: no Anesthetic plan: proceed Anesthesia type and monitoring: general GIVS and standard monitoring Results Review: All p
[2021-12-04] MEDS: AMPICILLIN 2 GM/NS 100 ML 2 GM/100 ML BAG IVPB (10:12)
[2021-12-04 10:48] VITALS: BP 117/48; PULSE 61; RESP 21; O2SAT 98
[2021-12-04 10:58] VITALS: BP 123/69; PULSE 59; RESP 17; O2SAT 98
[2021-12-04 11:08] VITALS: BP 130/64; PULSE 60; RESP 18; O2SAT 97
== END 2021-12-04 11:16 | disposition home or self-care (01) ==
PROVIDERS: PCP Student in an Organized Health Care Education/Training Program; Visit Provider Internal Medicine Gastroenterology
PROC: 0DJD8ZZ Inspection of Lower Intestinal Tract, Via Natural or Artificial Opening Endoscopic (ICD-10-PCS; CPT 45378; principal; 2021-12-04 10:45)
DX: Z12.11 Encounter for screening for malignant neoplasm of colon (principal); R19.5 Other fecal abnormalities; D12.2 Benign neoplasm of ascending colon; D12.5 Benign neoplasm of sigmoid colon; K57.30 Diverticulosis of large intestine without perforation or abscess without bleeding; K64.8 Other hemorrhoids; I11.0 Hypertensive heart disease with heart failure; I50.33 Acute on chronic diastolic (congestive) heart failure; E78.5 Hyperlipidemia, unspecified; I48.91 Unspecified atrial fibrillation; I25.10 Atherosclerotic heart disease of native coronary artery without angina pectoris; G47.30 Sleep apnea, unspecified; J45.909 Unspecified asthma, uncomplicated; F32.9 Major depressive disorder, single episode, unspecified; D68.51 Activated protein C resistance; Z86.73 Personal history of transient ischemic attack (TIA), and cerebral infarction without residual deficits; Z79.01 Long term (current) use of anticoagulants; Z95.1 Presence of aortocoronary bypass graft; Z95.2 Presence of prosthetic heart valve; Z98.1 Arthrodesis status; E66.9 Obesity, unspecified; Z68.30 Body mass index [BMI] 30.0-30.9, adult
CPT/HCPCS: 45385; 88305; J0290; J1580; J2704; J7120

== ENCOUNTER 2023-07-19 17:44 | Observation (INO) | payer MEDICARE, SELFPAY ==
[2023-07-19] VITALS (24 sets, daily range): BP systolic 135–157; BP diastolic 52–70; PULSE 60–90; RESP 13–64; TEMP 37.2–37.6; O2SAT 89–99; BMI 34.3
--- NOTE | ~2023-07-19 | CT_ITS ---
EXAMINATION: CTA chest PE abdomen pel DATE: 07/19/2023 20:23 INDICATION: sob, elevated dimer, flank pain, UTI TECHNIQUE: Computed tomography angiography (CTA) of the chest was performed with 100 mL Omnipaque-350 intravenous contrast timed to evaluate the pulmonary arteries, followed by portal venous phase imagi ng of the abdomen and pelvis. Coronal maximum intensity projection 3D-reconstructions were created by the technologist. The dose-length product (DLP) was 1534.67 mGy-cm. Automated exposure control and i terative reconstruction technique were employed. COMPARISON: None. FINDINGS: CHEST: Lung parenchyma and airways: Biapical pleural scarring. Bibasilar scar/atelectasis. Pleura: Small bilateral pleural fluid collections. Left posterior lateral pleural thickening/plaque p ossibly from prior trauma or procedure. Thoracic inlet, axillae and chest wall: Left chest pacer with intact leads. Thoracic aorta: Mild arch calcification. Mediastinum: Normal. Heart and pericardium: Cardiomegaly. Aortic valve replacement. Coronary artery calcifications: Mild. Thoracic bones: No acute osseous finding. Pulmonary arteries: Study quality: Adequate. No pulmonary emboli detected. ABDOMEN/PELVIS: Liver: Right lower lobe cyst. Biliary/Gallbladder: Mild gallbladder wall thickening/edema with mucosal hyperemia in a partially dis tended gallbladder. No bile duct dilation. Pancreas: No mass or duct dilation. Spleen: Normal. Adrenals:No mass. Kidneys: Bilateral hypodensities, too small to characterize but mostly represent cysts. Moderate bila teral perinephric stranding. Simple right lower pole cyst. Suggestion of patchy renal enhancement. Mi ld perinephric stranding. No hydronephrosis or obstructing calcification. No suspicious mass. GI tract: No small or large bowel dilation. Normal appendix. Diverticulosis without diverticulitis. Mesentery/Peritoneum: No ascites, mass, or free air. Retroperitoneum: No mass. Atherosclerotic abdominal aortic and/or arterial calcifications. Pelvis: Mild wall thickening/inflammation in a partially distended urinary bladder. Remaining pelvic organs are within normal limits. Small volume free pelvic fluid. Soft Tissues: Soft tissues and body wall unremarkable. Abdominopelvic bones: No acute osseous finding. IMPRESSION: No CT evidence of acute pulmonary embolus. Small bilateral pleural effusions. Chronic left posterior lateral pleural thickening. Mild gallbladder wall edema/thickening, correlate with right upper quadrant pain and biliary labs. Co nsider right upper quadrant ultrasound. Patchy renal enhancement and perinephric/periureteral stranding may represent ascending infection and pyelonephritis in the appropriate clinical context. Cystitis versus wall thickening from inadequate urinary bladder distention. Small volume free pelvic fluid. Reviewed, dictated and finalized at location K. IMPRESSION: No CT evidence of acute pulmonary embolus. Small bilateral pleural effusions. Chronic left posterior lateral pleural thickening. Mild gallbladder wall edema/thickening, correlate with right upper quadrant santiago n and biliary labs. Consider right upper quadrant ultrasound. Patchy renal enhancement and perinephric/periureteral stranding may represent a scending infection and pyelonephritis in the appropriate clinical context. Cystitis versus wall thickening from inadequate urinary bladder distention. Small volume free pelvic fluid.
--- NOTE | ~2023-07-19 | US_ITS ---
US abdomen limited INDICATION: Gallbladder wall thickening seen on CT examination PROCEDURE: Realtime right upper abdominal ultrasound. COMPARISON: CT dated 07/19/2023 FINDINGS: The pancreas is normal without focal mass or pancreatic ductal dilation. Liver echotexture is normal without focal mass or intrahepatic biliary dilatation. There is normal directional flow i n the portal vein. Gallbladder wall is thickened measuring 0.36 cm. There are multiple small gallbladder polyps. No defi nite gallstones. No pericholecystic fluid. Common bile duct measures 4 mm. No sonographic Doyle's sign. IMPRESSION: 1: Gallbladder polyps with gallbladder wall thickening. This could indicate interstitial edema, chron ic liver disease or chronic cholecystitis. Reviewed, dictated and finalized at location A. IMPRESSION: 1: Gallbladder polyps with gallbladder wall thickening. This could indicate int erstitial edema, chronic liver disease or chronic cholecystitis.
[2023-07-19 18:12] LABS: Basophils Absolute Auto 0.1 K/mm3 (0.0-0.1); Basophils Percent Auto 0.5 % (0.2-1.2); Eosinophils Absolute Auto 0.2 K/mm3 (0-0.3); Hematocrit 34.5 % (37.0-47.0); Hemoglobin 10.9 g/dL (12.0-15.0); Immature Granulocyte Absolute 0.07 K/mm3 (0.00-0.031); Immature Granulocyte Percent A 0.5 % (0-0.5); Mean Corpuscular HGB Conc 31.6 g/dl (32-36); Mean Corpuscular Hemoglobin 28.2 pg (26-34); Mean Corpuscular Volume 89.4 fl (80-100); Mean Platelet Volume 10.8 fl (7.4-10.4); Monocytes Absolute Auto 1.5 K/mm3 (0.1-0.6); Monocytes Percent Auto 10.2 % (2.6-8.5); Neutrophils Absolute Auto 11.2 K/mm3 (1.3-6.7); Neutrophils Percent Auto 76.8 % (45.5-73.1); Platelet Count Result 184 k/mm3 (150-375); Red Blood Count 3.86 M/mm3 (4.2-5.4); Red Cell Distribution Width 14.6 % (11.5-14.5); White Blood Count 14.6 K/mm3 (4.5-10.0)
[2023-07-19 18:37] LABS: Alanine Aminotransferase 25 U/L (6-35); Albumin Level 4.3 g/dL (3.5-5.1); Alkaline Phosphatase 87 U/L (38-126); Anion Gap 10 mmol/L (8-16); Aspartate Amino Transferase 38 U/L (14-36); Bilirubin,Total 0.8 mg/dL (0.2-1.3); Blood Urea Nitrogen 14 mg/dL (7-17); Calcium 8.9 mg/dL (8.4-10.2); Carbon Dioxide 23 mmol/L (22-30); Chloride 105 mmol/L (98-107); Estimated CRCL calculation 39 ml/min; Estimated Glomerular Filt Rate 44; Glucose 100 mg/dL (65-110); Potassium 3.7 mmol/L (3.4-5.0); Sodium 138 mmol/L (137-145)
[2023-07-19 18:50] LABS: Appearance Urine Clear (Clear); Bacteria Urine None Seen /hpf; Bilirubin Urine Negative (Negative); Blood Urine Negative (Negative); Color Urine Yellow (Yellow); Glucose Urine UA Negative (Negative); Ketones Urine Trace mg/dL (Negative); Leukocyte Esterase Ur 2+ LEU/UL (Negative); Nitrate Urine Negative (Negative); Protein Urine 2+ mg/dL (Negative); RBC Urine 0-2 /hpf (0-2); Specific Grav Ur 1.021 (1.001-1.035); Squamous Epithelial Cell Urine Few /hpf (Few); Urobilinogen Urine 0.2 mg/dL (<2.0); WBC Urine 21-50 /hpf; pH Urine 5.5 (5.0-9.0)
[2023-07-19 18:51] LABS: Add Urine Microscopic? YES
--- NOTE | 2023-07-19 19:02 | ECG_ITS ---
Measurements Intervals [place] Rate: 60 P: -88 IL: 217 QRS: 140 QRSD: 153 T: 21 QT: 467 QTc: 467 Interpretive Statements ELECTRONIC ATRIAL PACEMAKER RIGHT BUNDLE BRANCH BLOCK LEFT POSTERIOR FASCICULAR BLOCK BASELINE ARTIFACT- V6 ABNORMAL ECG COMPARED TO ECG 04/18/2020 12:09:48 NO SIGNIFICANT CHANGES Electronically Signed On 07-20-2023 6:56:35 CDT by Domo Zeng D.O.
--- NOTE | 2023-07-19 19:03 | ED.NAVMDI ---
HPI - Nausea/Vomiting/Diarrhea General Chief complaint: Nausea/Vomiting/Diarrhea <Catherine Fried PA-C - Last Filed: 07/19/23 22:58> Stated complaint: R lower back pain and nausea <Catherine Fried PA-C - Last Filed: 07/19/23 22:58> Time Seen by Provider: 07/19/23 18:48 <Catherine Fried PA-C - Last Filed: 07/19/23 22:58> Source: patient <Catherine Fried PA-C - Last Filed: 07/19/23 22:58> Mode of arrival: ambulatory <FABIEN Ross Last Filed: 07/19/23 22:58> Limitations: no limitations <Catherine Fried PA-C - Last Filed: 07/19/23 22:58> History of Present Illness HPI Narrative: This is a 72-year-old female that presents to the emergency department for right flank pain. Ongoing today. Reports the pain is sharp and intermittent in nature. Associated with nausea. Also reports some shortness of breath. Reports this has been going on for a while, but worsening recently. Also reports pain, swelling and redness of her right great toe which has been ongoing over the last 2 days. Was concerned she is may be having a gout flare. No previous history of gout. Denies fever, cough, chest pain, vomiting, dysuria, or hematuria. <Catherine Fried PA-C - Last Filed: 07/19/23 22:58> Related Data Home medications: Home Medications Medication Instructions Recorded Confirmed albuterol sulfate 90 mcg/actuation 2 puff inhalation Q4-6H PRN 09/13/19 07/19/23 aerosol inhaler (Ventolin HFA) Shortness Of Breath escitalopram oxalate 10 mg tablet 10 mg PO HS 09/13/19 07/19/23 (Lexapro) omalizumab 150 mg subcutaneous 150 mg subcut [id number] 09/13/19 07/19/23 solution (Xolair) rosuvastatin 40 mg tablet (Crestor) 40 mg PO HS 09/13/19 07/19/23 amlodipine 10 mg tablet 10 mg PO DAILY 01/03/20 07/19/23 levothyroxine 75 [place]cg tablet [place] [address]/07/21 07/19/23 (Euthyrox) triamcinolone acetonide 0.1 % 1 applic topical TID PRN Rash 11/22/21 07/19/23 topical ointment fluticasone fur. 200 mcg-umeclid 1 inh inhalation DAILY 07/19/23 07/19/23 62.5 mcg-vilant 25 mcg inhalat.powder (Trelegy Ellipta) sacubitril 24 mg-valsartan 26 mg 24 - 26 tablet PO DAILY 07/19/23 07/19/23 tablet (Entresto) <Catherine Fried PA-C - Last Filed: 07/19/23 22:58> Allergies/Adverse reactions: Allergies Allergy/AdvReac Type Severity Reaction Status Date / Time tree nut Allergy Unknown Anaphylaxis Verified 07/19/23 19:02 walnut Allergy Unknown Anaphylaxis Verified 07/19/23 19:02 <Catherine Fried PA-C - Last Filed: 07/19/23 22:58> Review of Systems Review of Systems: CONSTITUTIONAL: Denies fever CARDIOVASCULAR: Denies chest pain, or edema. RESPIRATORY: Reports dyspnea. GASTROINTESTINAL: Reports abdominal pain, nausea. Denies vomiting, or diarrhea. GENITOURINARY: Denies dysuria or hematuria. <Catherine Fried PA-C - Last Filed: 07/19/23 22:58> All systems reviewed & are unremarkable except as noted in HPI and below <Catherine Fried PA-C - Last Filed: 07/19/23 22:58> [facility] Past Medical History Medical History: Medical History Acute on chronic diastolic CHF (congestive heart failure) Afib Aortic valve disease Asthma CAD (coronary artery disease) Depression Eczema Factor V Leiden Hyperlipidemia Hypertension Obesity Pacemaker Pneumonia Sleep apnea TIA (transient ischemic attack) <Catherine Fried PA-C - Last Filed: 07/19/23 22:58> Surgical History Surgical History: Surgical History History of cardiac catheterization History of heart surgery single bypass to the Left anterior descending, 20 17 Moe Maze procedure also. History of heart valve replacement Aortic valve replacement for severe aortic stenosis, 2016 History of spinal fusion History of tubal ligation S/P aortic valve replacement with bioprosthetic valve <Catherine Fried PA-C - Last Filed:
[2023-07-19 19:51] LABS: D Dimer 2.73 ug/mL (<0.48)
[2023-07-19] MEDS: ACETAMINOPHEN 500 MG TABLET 1000 MG PO (21:16)
[2023-07-19 21:32] LABS: Lipase 111 U/L (23-300)
[2023-07-19 21:42] LABS: Lactic Acid Reflex 0.9 mmol/L (0.7-2.0)
--- NOTE | 2023-07-19 23:03 | PM.IMHP ---
H&P: HPI History of Present Illness Date/Time: 07/19/23 23:03 Chief Complaint: patient was brought to the ER for evaluation with complaints of right flank pain Narrative: She is a very pleasant 72 years old lady who is complaining of pain in the right flank for last couple of days, sharp and intermittent in nature. Associated with nausea and some shortness of breath. She has these symptoms going on for a few days but it got worse today. Brought to the ER for evaluation, workup was done which showed bilateral acute pyelonephritis. she was started on IV hydration IV antibiotics. She is also complaining of pain and swelling with redness of her right great toe which she thinks is flare up of her gout. She is being admitted to medical unit for further management and close monitoring. Review of Systems Review of Systems: she denies any chest pain, palpitations, dizziness, loss of consciousness, or any falls All systems reviewed & are unremarkable except as noted in HPI and below PMFSH Past Medical History Medical History Acute on chronic diastolic CHF (congestive heart failure) Afib Aortic valve disease Asthma CAD (coronary artery disease) Depression Eczema Factor V Leiden Hyperlipidemia Hypertension Obesity Pacemaker Pneumonia Sleep apnea TIA (transient ischemic attack) Surgical History Surgical History History of cardiac catheterization History of heart surgery single bypass to the Left anterior descending, 20 17 Moe Maze procedure also. History of heart valve replacement Aortic valve replacement for severe aortic stenosis, 2016 History of spinal fusion History of tubal ligation S/P aortic valve replacement with bioprosthetic valve Family History Family History Mother Stomach cancer of stomach cancer Uterine cancer Hypertension Father Atrial fibrillation Sudden Found at home on the floor Sibling Hypertension Factor 5 Leiden mutation, heterozygous DVT (deep venous thrombosis) Social History Social History Social History: Patient lives at home with her 2 daughter daughters, Dominique and jarad. She designates her daughter Jarad as her surrogate MDM. Her PCP is Dr. Cason. She wishes to be listed as a Full Code. 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 Lifelong nonsmoker and does not use any alcohol or illicit drugs. Smoking status: Never smoker Alcohol intake: never Substance use: never Substance use type: does not use Living arrangements: with family Gender identity (if verbalized by the patient): Female Spiritual care concerns: No Agree to blood products: Yes Meds Home Medications and Allergies Home Medications Medication Instructions Recorded Confirmed Type albuterol sulfate 90 mcg/actuation 2 puff inhalation Q4-6H PRN 09/13/19 11/22/21 History aerosol inhaler (Ventolin HFA) Shortness Of Breath apixaban 5 mg tablet (Eliquis) 5 mg PO Q12H 09/13/19 11/22/21 History escitalopram oxalate 10 mg tablet 10 mg PO HS 09/13/19 11/22/21 History (Lexapro) omalizumab 150 mg subcutaneous 150 mg subcut [id number] 09/13/19 11/22/21 History solution (Xolair) rosuvastatin 40 mg tablet (Crestor) 40 mg PO HS 09/13/19 11/22/21 History amlodipine 10 mg tablet 10 mg PO DAILY 01/03/20 11/22/21 History budesonide-formoterol HFA 160 2 puff inhalation BID 02/07/21 11/22/21 History mcg-4.5 mcg/actuation aerosol inhaler (Symbicort) levothyroxine 75 mcg tablet 75 mcg PO 0630 02/07/21 11/22/21 History (Euthyrox) lisinopril 10 mg tablet 10 mg PO HS 02/07/21 11/22/21 History spironolactone 25 mg tablet 12.5 mg PO DAILY 02/07/21 11/22/21 History triamcinolone acetonide 0.1 % 1 applic t
--- NOTE | 2023-07-19 23:46 | ADMGEN ---
This patient, Kalli Cannon, was admitted to 2 Medical Room 260-01. Patient/family oriented to hospital policies and general routines including ID bracelet, bed and alarms, visiting hours, pain management, procedures, bathroom and other care routines, personal items, smoking policy, room service/diet, and visiting hours. Information on how to activate the Rapid Response Team has been discussed. Patient/Family are encouraged to report perceived risks to care and to ask questions if they do not understand what they are told or what they should do.
[2023-07-19 23:52] LABS: Uric Acid 5.4 mg/dL (2.5-7.5)
[2023-07-20] VITALS (11 sets, daily range): BP systolic 123–142; BP diastolic 48–59; PULSE 60–68; RESP 16–20; TEMP 36.5–36.8; O2SAT 92–98
[2023-07-20] MEDS: methylPREDNISolone SOD SUCC 40 MG VIAL IV PUSH (00:09)
[2023-07-20] MEDS: SODIUM CHLORIDE 0.9% IV 1,000 ML 75 ML IV CONT (00:09)
[2023-07-20 05:53] LABS: Basophils Percent Auto 0.2 % (0.2-1.2); Hematocrit 34.5 % (37.0-47.0); Hemoglobin 11.1 g/dL (12.0-15.0); Immature Granulocyte Absolute 0.08 K/mm3 (0.00-0.031); Immature Granulocyte Percent A 0.6 % (0-0.5); Lymphocytes Absolute Auto 0.78 K/mm3 (0.9-3.2); Lymphocytes Percent Auto 5.9 % (18.3-44.2); Mean Corpuscular HGB Conc 32.2 g/dl (32-36); Mean Corpuscular Hemoglobin 28.5 pg (26-34); Mean Corpuscular Volume 88.7 fl (80-100); Mean Platelet Volume 10.6 fl (7.4-10.4); Monocytes Absolute Auto 0.4 K/mm3 (0.1-0.6); Monocytes Percent Auto 2.9 % (2.6-8.5); Neutrophils Absolute Auto 11.9 K/mm3 (1.3-6.7); Neutrophils Percent Auto 90.4 % (45.5-73.1); Platelet Count Result 162 k/mm3 (150-375); Red Blood Count 3.89 M/mm3 (4.2-5.4); Red Cell Distribution Width 14.4 % (11.5-14.5); White Blood Count 13.2 K/mm3 (4.5-10.0)
[2023-07-20 06:03] LABS: Anion Gap 10 mmol/L (8-16); Blood Urea Nitrogen 14 mg/dL (7-17); Calcium 8.8 mg/dL (8.4-10.2); Carbon Dioxide 22 mmol/L (22-30); Chloride 106 mmol/L (98-107); Estimated CRCL calculation 43 ml/min; Estimated Glomerular Filt Rate 49; Glucose 143 mg/dL (65-110); Phosphorus 3.7 mg/dL (2.5-4.5); Potassium 4.1 mmol/L (3.4-5.0); Sodium 138 mmol/L (137-145)
[2023-07-20] MEDS: ESCITALOPRAM OXALATE 10 MG TABLET PO ×2 (06:33→20:33)
[2023-07-20] MEDS: ROSUVASTATIN 10 MG TABLET 40 MG PO ×2 (06:33→20:33)
[2023-07-20] MEDS: LEVOTHYROXINE SODIUM 75 MCG TABLET PO (06:33)
[2023-07-20] MEDS: amLODIPine BESYLATE 5 MG TABLET 10 MG PO (08:21)
[2023-07-20] MEDS: SACUBITRIL/VALSARTAN 24-26 MG TABLET 1 TAB PO ×2 (08:21→20:33)
[2023-07-20] MEDS: predniSONE 20 MG TABLET PO (08:22)
[2023-07-20] MEDS: ENOXAPARIN 40 MG/0.4 ML SYRINGE SUB-Q (08:22)
[2023-07-20] MEDS: FLUTICASONE/UMECLIDIN/VILANTER 200-62.5-25 MCG ELLIPTA 1 PUFF INHALATION (08:23)
--- NOTE | 2023-07-20 11:32 | PM.IMPN ---
Progress Note: A&P Assessment and Plan (1) Acute pyelonephritis: Code(s): N10 - Acute pyelonephritis Status: Acute Assessment and Plan: Continue with IV antibiotics and monitor cultures (2) Pain of right great toe: Code(s): M79.674 - Pain in right toe(s) Status: Acute Assessment and Plan: Stable on current meds (3) Hyperlipidemia: Code(s): E78.5 - Hyperlipidemia, unspecified Status: Chronic Assessment and Plan: Stable on current meds (4) Depression: Code(s): F32.9 - Major depressive disorder, single episode, unspecified Status: Chronic Assessment and Plan: Stable on current meds (5) Factor 5 Leiden mutation, heterozygous: Code(s): D68.51 - Activated protein C resistance Status: Acute Assessment and Plan: Stable on current meds (6) Factor V Leiden: Code(s): D68.51 - Activated protein C resistance Status: Acute Assessment and Plan: Stable on current meds (7) Chronic diastolic CHF (congestive heart failure): Code(s): I50.32 - Chronic diastolic (congestive) heart failure Status: Acute Assessment and Plan: Stable on current meds (8) Tachy-katherine syndrome: Code(s): I49.5 - Sick sinus syndrome Status: Acute Assessment and Plan: Stable on current meds (9) Paroxysmal atrial fibrillation: Code(s): I48.0 - Paroxysmal atrial fibrillation Status: Acute Assessment and Plan: Stable on current meds (10) Hypokalemia: Code(s): E87.6 - Hypokalemia Status: Acute Assessment and Plan: Replace and monitor closely (11) CAD (coronary artery disease): Qualifiers: Associated angina: without angina Coronary Disease-Associated Artery/Lesion type: [place] artery Hoh vs. transplanted heart: [place] heart Qualified Code(s): I25.10 - Atherosclerotic heart disease of [place] coronary artery without angina pectoris Code(s): I25.10 - Atherosclerotic heart disease of [place] coronary artery without angina pectoris Status: Acute Assessment and Plan: Stable on current shona (12) Hypertension: Qualifiers: Hypertension type: essential hypertension Qualified Code(s): I10 - Essential (primary) hypertension Code(s): I10 - Essential (primary) hypertension Status: Acute Assessment and Plan: Stable on current meds (13) Asthma: Code(s): J45.909 - Unspecified asthma, uncomplicated Status: Acute Assessment and Plan: Stable on current meds (14) Sleep apnea: Code(s): G47.30 - Sleep apnea, unspecified Status: Acute Assessment and Plan: Stable on current meds Subjective Date/time seen: 07/20/23 11:32 Patient was seen during the morning rounds today. Feeling slightly better. Decreased abdominal pain, no nausea or vomiting. No sob or chest pain. Mood stable. Review of Systems Review of Systems: she denies any chest pain, palpitations, dizziness, loss of consciousness, or any falls All systems reviewed & are unremarkable except as noted in HPI and below Exam Narrative: PHYSICAL EXAMINATION: Vital signs: Please see the chart General physical exam: 72 years old female, lying in bed in the ER, appears tired and fatigued Head/eyes: Atraumatic, EOMI, PERRLA ENT: Moist mucous membranes, nasal passages clear Neck: Supple, full range of motion, trachea midline CVS: S1 + S2, regular rate and rhythm, no murmurs Respiratory: Bilaterally fair air entry in both lung vill[place], mild B/L crackles, symmetric chest expansion, no distress Abdomen: Soft, non-tender, bowel sounds +ve, no organomegaly Urology: + bilateral CVA tenderness, right more than left Extremities: No clubbing, no cyanosis, no edema, no calf tenderness Musculoskeletal: Moves all, adequate range of motion, no muscle spasms, + tenderness right 1st MTP joint Skin: Warm, dry, no jaundice, no cya
[2023-07-21] VITALS (10 sets, daily range): BP systolic 117–136; BP diastolic 50–64; PULSE 60–70; RESP 14–18; TEMP 36.2–37; O2SAT 95–97
[2023-07-21 05:42] LABS: Basophils Percent Auto 0.1 % (0.2-1.2); Hematocrit 33.6 % (37.0-47.0); Hemoglobin 10.8 g/dL (12.0-15.0); Immature Granulocyte Absolute 0.14 K/mm3 (0.00-0.031); Immature Granulocyte Percent A 0.7 % (0-0.5); Lymphocytes Absolute Auto 1.46 K/mm3 (0.9-3.2); Lymphocytes Percent Auto 6.8 % (18.3-44.2); Mean Corpuscular HGB Conc 32.1 g/dl (32-36); Mean Corpuscular Hemoglobin 28.3 pg (26-34); Monocytes Absolute Auto 1.6 K/mm3 (0.1-0.6); Monocytes Percent Auto 7.4 % (2.6-8.5); Neutrophils Absolute Auto 18.2 K/mm3 (1.3-6.7); Platelet Count Result 213 k/mm3 (150-375); Red Blood Count 3.82 M/mm3 (4.2-5.4); Red Cell Distribution Width 14.3 % (11.5-14.5); White Blood Count 21.4 K/mm3 (4.5-10.0)
[2023-07-21 05:54] LABS: Anion Gap 11 mmol/L (8-16); Blood Urea Nitrogen 22 mg/dL (7-17); Calcium 8.6 mg/dL (8.4-10.2); Carbon Dioxide 20 mmol/L (22-30); Chloride 106 mmol/L (98-107); Estimated CRCL calculation 40 ml/min; Estimated Glomerular Filt Rate 44; Glucose 112 mg/dL (65-110); Potassium 3.6 mmol/L (3.4-5.0); Sodium 137 mmol/L (137-145)
[2023-07-21] MEDS: LEVOTHYROXINE SODIUM 75 MCG TABLET PO (05:58)
[2023-07-21] MEDS: FLUTICASONE/UMECLIDIN/VILANTER 200-62.5-25 MCG ELLIPTA 1 PUFF INHALATION (08:09)
[2023-07-21] MEDS: amLODIPine BESYLATE 5 MG TABLET 10 MG PO (09:26)
[2023-07-21] MEDS: SACUBITRIL/VALSARTAN 24-26 MG TABLET 1 TAB PO ×2 (09:26→21:09)
[2023-07-21] MEDS: predniSONE 20 MG TABLET PO (09:27)
[2023-07-21] MEDS: ENOXAPARIN 40 MG/0.4 ML SYRINGE SUB-Q (09:27)
--- NOTE | 2023-07-21 12:46 | PM.IMPN ---
Progress Note: A&P Assessment and Plan (1) Acute pyelonephritis: Code(s): N10 - Acute pyelonephritis Status: Acute Assessment and Plan: Continue with IV antibiotics and monitor cultures. White blood cell count significantly rising 21.4 this morning. Repeat blood cultures drawn. This may be related to prednisone. Will discontinue prednisone. (2) Pain of right great toe: Code(s): M79.674 - Pain in right toe(s) Status: Acute Assessment and Plan: Stable on current meds discontinue prednisone (3) Abnormal CT scan: Code(s): R93.89 - Abnormal findings on diagnostic imaging of other specified body structures Status: Acute Assessment and Plan: CT scan concerning for gallbladder problem, ultrasound obtained showing gallbladder polyps and thickening possibly chronic cholecystitis. No right upper quadrant or epigastric abdominal tenderness or pain, no nausea or vomiting. Likely plan clinic follow-up with General surgery after acute hospitalization unless white blood cell count does not improve, patient develops symptoms or liver function testing is abnormal (4) Hyperlipidemia: Code(s): E78.5 - Hyperlipidemia, unspecified Status: Chronic Assessment and Plan: Stable on current meds (5) Depression: Code(s): F32.9 - Major depressive disorder, single episode, unspecified Status: Chronic Assessment and Plan: Stable on current meds (6) Factor V Leiden: Code(s): D68.51 - Activated protein C resistance Status: Acute Assessment and Plan: Stable on current meds (7) Chronic diastolic CHF (congestive heart failure): Code(s): I50.32 - Chronic diastolic (congestive) heart failure Status: Acute Assessment and Plan: Stable on current meds (8) Tachy-katherine syndrome: Code(s): I49.5 - Sick sinus syndrome Status: Acute Assessment and Plan: Stable on current meds (9) Paroxysmal atrial fibrillation: Code(s): I48.0 - Paroxysmal atrial fibrillation Status: Acute Assessment and Plan: Stable on current meds (10) Hypokalemia: Code(s): E87.6 - Hypokalemia Status: Acute Assessment and Plan: Replace and monitor closely (11) CAD (coronary artery disease): Qualifiers: Coronary Disease-Associated Artery/Lesion type: [place] artery [place] vs. transplanted heart: [place] heart Associated angina: without angina Qualified Code(s): I25.10 - Atherosclerotic heart disease of [place] coronary artery without angina pectoris Code(s): I25.10 - Atherosclerotic heart disease of [place] coronary artery without angina pectoris Status: Acute Assessment and Plan: Stable on current meds (12) Hypertension: Qualifiers: Hypertension type: essential hypertension Qualified Code(s): I10 - Essential (primary) hypertension Code(s): I10 - Essential (primary) hypertension Status: Acute Assessment and Plan: Stable on current meds (13) Asthma: Code(s): J45.909 - Unspecified asthma, uncomplicated Status: Acute Assessment and Plan: Stable on current meds (14) Sleep apnea: Code(s): G47.30 - Sleep apnea, unspecified Status: Acute Assessment and Plan: Stable on current treatment, AutoPAP available while in the hospital Plan Discontinue prednisone monitor white blood cell count, consider surgery consult for abnormal gallbladder findings if patient condition does not improve, monitor newly obtain blood cultures. Time Spent With Patient Time with patient: 25 - 35 minutes Subjective Date/time seen: 07/21/23 12:46 Interval history: Patient seen on rounds today. She notes some right lower quadrant tenderness on examination. Otherwise patient reports that she feels well. No fever chills. No nausea or vomiting. No epigastric or right upper quadrant pain. Review of Systems Review of Syst
[2023-07-21 15:14] LABS: Alanine Aminotransferase 26 U/L (6-35); Alkaline Phosphatase 77 U/L (38-126); Aspartate Amino Transferase 30 U/L (14-36); Bilirubin,Total 0.3 mg/dL (0.2-1.3)
[2023-07-21] MEDS: ESCITALOPRAM OXALATE 10 MG TABLET PO (21:09)
[2023-07-21] MEDS: ROSUVASTATIN 10 MG TABLET 40 MG PO (21:09)
[2023-07-22] VITALS (7 sets, daily range): BP systolic 120–134; BP diastolic 56–64; PULSE 60–71; RESP 14–18; TEMP 36.8; O2SAT 96–99
[2023-07-22 06:20] LABS: Basophils Percent Auto 0.3 % (0.2-1.2); Eosinophils Percent Auto 0.2 % (0-4.4); Hematocrit 33.7 % (37.0-47.0); Hemoglobin 10.6 g/dL (12.0-15.0); Immature Granulocyte Absolute 0.03 K/mm3 (0.00-0.031); Immature Granulocyte Percent A 0.2 % (0-0.5); Lymphocytes Absolute Auto 1.82 K/mm3 (0.9-3.2); Lymphocytes Percent Auto 14.9 % (18.3-44.2); Mean Corpuscular HGB Conc 31.5 g/dl (32-36); Mean Corpuscular Hemoglobin 27.9 pg (26-34); Mean Corpuscular Volume 88.7 fl (80-100); Monocytes Percent Auto 8.5 % (2.6-8.5); Neutrophils Absolute Auto 9.3 K/mm3 (1.3-6.7); Neutrophils Percent Auto 75.9 % (45.5-73.1); Platelet Count Result 220 k/mm3 (150-375); Red Cell Distribution Width 14.4 % (11.5-14.5); White Blood Count 12.2 K/mm3 (4.5-10.0)
[2023-07-22] MEDS: LEVOTHYROXINE SODIUM 75 MCG TABLET PO (06:24)
[2023-07-22 06:34] LABS: Alanine Aminotransferase 34 U/L (6-35); Albumin Level 3.7 g/dL (3.5-5.1); Alkaline Phosphatase 68 U/L (38-126); Anion Gap 6 mmol/L (8-16); Aspartate Amino Transferase 37 U/L (14-36); Bilirubin,Total 0.4 mg/dL (0.2-1.3); Blood Urea Nitrogen 21 mg/dL (7-17); Calcium 8.4 mg/dL (8.4-10.2); Carbon Dioxide 25 mmol/L (22-30); Chloride 109 mmol/L (98-107); Estimated CRCL calculation 43 ml/min; Estimated Glomerular Filt Rate 49; Glucose 83 mg/dL (65-110); Potassium 3.7 mmol/L (3.4-5.0); Sodium 140 mmol/L (137-145)
[2023-07-22] MEDS: FLUTICASONE/UMECLIDIN/VILANTER 200-62.5-25 MCG ELLIPTA 1 PUFF INHALATION (08:40)
[2023-07-22] MEDS: amLODIPine BESYLATE 5 MG TABLET 10 MG PO (08:59)
[2023-07-22] MEDS: SACUBITRIL/VALSARTAN 24-26 MG TABLET 1 TAB PO (08:59)
[2023-07-22] MEDS: ENOXAPARIN 40 MG/0.4 ML SYRINGE SUB-Q (09:01)
--- NOTE | 2023-07-22 12:09 | PM.DS ---
DS: Admitting Diagnosis Discharge Date 07/22/2023 Admitting Diagnosis acute pyelonephritis, pain in right great toe, hyperlipidemia, depression, factor 5 Leiden mutation, chronic diastolic CHF tachy-katherine syndrome, paroxysmal atrial fibrillation, hypokalemia, bradycardia, acute on chronic diastolic CHF, CAD, status post aortic valve replacement with bioprosthetic valve, hypertension, asthma, sleep apnea, asthma exacerbation, elevated brain natural retic peptide level DS: Discharge Diagnosis Discharge Diagnosis (1) Acute pyelonephritis: Code(s): N10 - Acute pyelonephritis Status: Acute (2) Pain of right great toe: Code(s): M79.674 - Pain in right toe(s) Status: Acute (3) Abnormal CT scan: Code(s): R93.89 - Abnormal findings on diagnostic imaging of other specified body structures Status: Acute (4) Hyperlipidemia: Code(s): E78.5 - Hyperlipidemia, unspecified Status: Chronic (5) Depression: Code(s): F32.9 - Major depressive disorder, single episode, unspecified Status: Chronic (6) Factor V Leiden: Code(s): D68.51 - Activated protein C resistance Status: Acute (7) Chronic diastolic CHF (congestive heart failure): Code(s): I50.32 - Chronic diastolic (congestive) heart failure Status: Acute (8) Tachy-katherine syndrome: Code(s): I49.5 - Sick sinus syndrome Status: Acute (9) Paroxysmal atrial fibrillation: Code(s): I48.0 - Paroxysmal atrial fibrillation Status: Acute (10) Hypokalemia: Code(s): E87.6 - Hypokalemia Status: Acute (11) CAD (coronary artery disease): Qualifiers: Coronary Disease-Associated Artery/Lesion type: [place] artery [place] vs. transplanted heart: [place] heart Associated angina: without angina Qualified Code(s): I25.10 - Atherosclerotic heart disease of [place] coronary artery without angina pectoris Code(s): I25.10 - Atherosclerotic heart disease of [place] coronary artery without angina pectoris Status: Acute (12) Hypertension: Qualifiers: Hypertension type: essential hypertension Qualified Code(s): I10 - Essential (primary) hypertension Code(s): I10 - Essential (primary) hypertension Status: Acute (13) Asthma: Code(s): J45.909 - Unspecified asthma, uncomplicated Status: Acute (14) Sleep apnea: Code(s): G47.30 - Sleep apnea, unspecified Status: Acute Plan discharge with Augmentin for 3 days, follow blood cultures DS: Summary Hospital Course Reason for hospitalization: Abdominal pain with findings of pyelonephritis Hospital Course: this is a 72-year-old female patient who was admitted to the hospital for treatment bilateral pyelonephritis. Patient had right-sided CVA tenderness and a urinalysis suggestive of urinary tract infection. She was started on IV antibiotics Rocephin 1 g twice daily which was continued for several days. She was also started on prednisone for suspected gout flare in her toe. White blood cell count did rise considerably for the 1st couple days of admission. This may have been related to prednisone. However, at out of abundance of caution blood cultures were obtained. Today white blood cell count has significantly decreased and patient is symptom free. Urine culture was ultimately negative. Patient discharged home on 3 additional days of Augmentin again out of abundance of caution. Blood cultures will continue to be monitored and patient notified if she needs to return or change antibiotics/duration. Status at Discharge Cognitive/behavioral status at discharge: awake alert oriented and pleasant Functional status at discharge: independent ambulation Overall status at discharge: patient is back to baseline Time Spent with Patient Time attestation: Total time spent providing and/or coordinating discharge services: 35 minutes Time spent: Greater than 30 minutes Exam Esequiel
== END 2023-07-22 15:16 | disposition home or self-care (01) ==
LOC: ANHED 22:14 → ANH2MED 22:46
PROVIDERS: Nurse Practitioner; Student in an Organized Health Care Education/Training Program; Admitting Provider Family Medicine; Emergency Provider Physician Assistant; PCP Student in an Organized Health Care Education/Training Program; Visit Provider Chiropractor
DX: N10 Acute pyelonephritis (principal); M79.674 Pain in right toe(s); R93.89 Abnormal findings on diagnostic imaging of other specified body structures; E78.5 Hyperlipidemia, unspecified; F32.9 Major depressive disorder, single episode, unspecified; D68.51 Activated protein C resistance; I11.0 Hypertensive heart disease with heart failure; I50.32 Chronic diastolic (congestive) heart failure; I49.5 Sick sinus syndrome; I48.0 Paroxysmal atrial fibrillation; E87.6 Hypokalemia; I25.10 Atherosclerotic heart disease of native coronary artery without angina pectoris; Z95.1 Presence of aortocoronary bypass graft; Z95.2 Presence of prosthetic heart valve; J45.909 Unspecified asthma, uncomplicated; G47.30 Sleep apnea, unspecified; J90 Pleural effusion, not elsewhere classified; I35.9 Nonrheumatic aortic valve disorder, unspecified; Z95.0 Presence of cardiac pacemaker; L53.9 Erythematous condition, unspecified; D72.829 Elevated white blood cell count, unspecified; R94.31 Abnormal electrocardiogram [ECG] [EKG]; K82.4 Cholesterolosis of gallbladder; L30.9 Dermatitis, unspecified; E66.9 Obesity, unspecified; Z68.34 Body mass index [BMI] 34.0-34.9, adult; Z86.73 Personal history of transient ischemic attack (TIA), and cerebral infarction without residual deficits; Z79.51 Long term (current) use of inhaled steroids; Z79.01 Long term (current) use of anticoagulants
CPT/HCPCS: 36415; 71275; 74177; 76705; 80048; 80053; 80076; 81001; 83605; 83690; 83735; 84100; 84550; 85025; 85380; 87040; 87086; 87088; 93005; 94640; 96361; 96365; 96366; 96372; 99285; A9270; G0378; J0696; J1650; J2920; J7030; J7512; Q9967

== ENCOUNTER 2023-10-17 08:26 | Emergency (ER) | payer MEDICARE, SELFPAY ==
--- NOTE | ~2023-10-17 | XR_ITS ---
EXAMINATION: [id number] INDICATION: Right-sided chest pain TECHNIQUE: A frontal view of the chest and 3 views of the right ribs were obtained. COMPARISON: None. FINDINGS: The lungs are free of acute opacities. No pleural effusion or pneumothorax. The heart size is normal. A dual-lead cardiac pacemaker of the left chest wall ends with leads in expected locations . There are changes of cardiac valve replacement. There is a possible nondisplaced lateral fracture o f the right sixth rib. There is moderate osteoarthritis of the right shoulder. IMPRESSION: 1. Possible nondisplaced lateral fracture of the right sixth rib. 2. No acute cardiopulmonary abnormality. Reviewed, dictated and finalized at location B. 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
--- NOTE | ~2023-10-17 | XR_ITS ---
EXAMINATION: XR elbow RT min 3V INDICATION: Right elbow pain after fall TECHNIQUE: Four views of the right elbow are obtained. COMPARISON: None available FINDINGS: There is marked posterior soft tissue swelling at the proximal aspect of the posterior righ t forearm near the elbow. Bone alignment is normal. There is no fracture. IMPRESSION: 1. Marked soft tissue swelling without acute osseous abnormality. Reviewed, dictated and finalized at location B. WINDER
[2023-10-17 08:38] VITALS: BP 134/59; PULSE 68; RESP 14; TEMP 36.4; O2SAT 100
--- NOTE | 2023-10-17 09:01 | ED.GENADULT ---
HPI - General Adult General Chief complaint: Extremity Injury, Upper Stated complaint: Fall Time Seen by Provider: 10/17/23 08:54 Source: patient and RN notes reviewed Mode of arrival: ambulatory Limitations: no limitations History of Present Illness HPI narrative: Patient presents today complaining of pain and right lateral rib pain. She slipped in some mild this morning and fell onto her right side onto some concrete while walking her dog. Denies head injury or loss of consciousness. No shortness of breath, numbness or tingling in the arm or hand. She currently rates her pain 7/10 and states her elbow is getting stiff due to swelling. She is not up-to-date on her tetanus vaccine. Related Data Home Medications Medication Instructions Recorded Confirmed albuterol sulfate 90 mcg/actuation 2 puff inhalation Q4-6H PRN 09/13/19 10/17/23 aerosol inhaler (Ventolin HFA) Shortness Of Breath escitalopram oxalate 10 mg tablet 10 mg PO HS 09/13/19 10/17/23 (Lexapro) omalizumab 150 mg subcutaneous 150 mg subcut [id number] 09/13/19 10/17/23 solution (Xolair) rosuvastatin 40 mg tablet (Crestor) 40 mg PO HS 09/13/19 10/17/23 amlodipine 10 mg tablet 10 mg PO DAILY 01/03/20 10/17/23 levothyroxine 75 mcg tablet 75 mcg PO 0630 02/07/21 10/17/23 (Euthyrox) triamcinolone acetonide 0.1 % 1 applic topical TID PRN Rash 11/22/21 10/17/23 topical ointment fluticasone fur. 200 mcg-umeclid 1 inh inhalation DAILY 07/19/23 10/17/23 62.5 mcg-vilant 25 mcg inhalat.powder (Trelegy Ellipta) sacubitril 24 mg-valsartan 26 mg 24 - 26 tablet PO DAILY 07/19/23 10/17/23 tablet (Entresto) Allergies Allergy/AdvReac Type Severity Reaction Status Date / Time tree nut Allergy Unknown Anaphylaxis Verified 10/17/23 08:43 walnut Allergy Unknown Anaphylaxis Verified 10/17/23 08:43 Review of Systems Review of Systems: CONSTITUTIONAL: Denies body aches, fever, chills, or sweats. EYES: Denies visual changes, redness, or discharge. ENT: Denies rhinorrhea, congestion, sore throat, or otalgia. CARDIOVASCULAR: Denies chest pain, palpitations, or edema. RESPIRATORY: Denies cough or dyspnea. GASTROINTESTINAL: Denies abdominal pain, nausea, vomiting, or diarrhea. GENITOURINARY: Denies dysuria or hematuria. SKIN: Denies rash, itching, or wounds. MUSCULOSKELETAL: Denies back pain, or myalgia.+ right elbow pain and swelling, right rib pain NEUROLOGIC: Denies headache, numbness, tingling, or weakness. PSYCH: Denies depression or anxiety. [facility] Past Medical History Medical History Acute on chronic diastolic CHF (congestive heart failure) Afib Aortic valve disease Asthma CAD (coronary artery disease) Depression Eczema Factor V Leiden Hyperlipidemia Hypertension Obesity Pacemaker Pneumonia Sleep apnea TIA (transient ischemic attack) Surgical History Surgical History History of cardiac catheterization History of heart surgery single bypass to the Left anterior descending, 20 17 Moe Maze procedure also. History of heart valve replacement Aortic valve replacement for severe aortic stenosis, 2016 History of spinal fusion History of tubal ligation S/P aortic valve replacement with bioprosthetic valve Family History Family History Mother Stomach cancer of stomach cancer Uterine cancer Hypertension Father Atrial fibrillation Sudden Found at home on the floor Sibling Hypertension Factor 5 Leiden mutation, heterozygous DVT (deep venous thrombosis) Social History Social History Social History: Patient lives at home with her 2 daughter daughters, Dominique and louisa. She designates her daughter Louisa as her surrogate MDM. Her PCP is Dr. Cason. She wishes to
[2023-10-17] MEDS: TETANUS,DIPHTHERIA,AC PERTUSSIS ADULT (0.5 ML) BOOSTRIX IM (09:17)
== END 2023-10-17 09:43 | disposition home or self-care (01) ==
PROVIDERS: Emergency Provider Nurse Practitioner; PCP Student in an Organized Health Care Education/Training Program
DX: S22.31XA Fracture of one rib, right side, initial encounter for closed fracture (principal); S50.01XA Contusion of right elbow, initial encounter; I48.91 Unspecified atrial fibrillation; I25.10 Atherosclerotic heart disease of native coronary artery without angina pectoris; E78.5 Hyperlipidemia, unspecified; I11.0 Hypertensive heart disease with heart failure; I50.33 Acute on chronic diastolic (congestive) heart failure; Z86.73 Personal history of transient ischemic attack (TIA), and cerebral infarction without residual deficits; Z79.899 Other long term (current) drug therapy; Z23 Encounter for immunization; W01.0XXA Fall on same level from slipping, tripping and stumbling without subsequent striking against object, initial encounter; Y93.K1 Activity, walking an animal
CPT/HCPCS: 71101; 73080; 90471; 90715; 99214; A4565; G0463

== ENCOUNTER 2024-03-07 09:32 | Emergency (ER) | payer MEDICARE, SELFPAY ==
--- NOTE | ~2024-03-07 | CT_ITS ---
EXAMINATION: CT abdomen pelvis wo con DATE: 03/07/2024 10:21 INDICATION: Left flank pain, nausea and vomiting. Urinary tract infection. History of kidney stones. TECHNIQUE: Computed tomography (CT) of the abdomen and pelvis was performed without intravenous contr ast. Automated exposure control and iterative reconstruction technique were employed. Exam dose: 647 .63 mGy-cm total exam DLP. COMPARISON: 07/20/2023 Limited abdominal ultrasound examination 07/19/2023 CT chest abdomen pelvis FINDINGS: Status post sternotomy. Right ventricular pacemaker lead. Cardiomegaly. Right fat containing foramen of [place] hernia. There is minimal focal nodularity infiltrate in the posterolateral right lower lobe. Mild chronic dis coid atelectasis or scarring at the base of the left lower lobe. No pericardial or pleural effusion. Small sliding hiatal hernia. Posterior right hepatic stable 1.3 cm cyst. Normal morphology of the adrenal glands. Stable 2 cm and 1.6 cm contiguous exophytic lower pole left renal cysts. There is an approximately 2 mm left ureterovesical junction calculus with mild left hydroureteronephr osis. No other urinary tract calculus. No right hydroureteronephrosis. The urinary bladder is relatively evacuated, not optimally evaluated. Approximately 10.5 mm calcified density within the uterus consistent with calcified uterine fibroid. Uterus and adnexal areas are otherwise unremarkable. There is extensive atherosclerotic calcification with normal caliber of the abdominal aorta. No intra peritoneal or retroperitoneal or pelvic mass lesion or adenopathy or ascites is detected. Diverticulosis of left and right colon; no CT evidence of diverticulitis. No bowel obstruction, bowel wall thickening, pneumatosis or intraperitoneal free air is detected. Small fat-containing umbilical hernia. Right L5 pars intra-articular is defect. Grade 1 anterolisthesis at L4-5 and L5-S1. No suspicious osteolytic or osteoblastic lesions are noted. IMPRESSION: 2 mm left ureterovesical junction calculus with mild left hydroureteronephrosis Stable right hepatic and left renal cysts Minimal focal nodular infiltrate, posterolateral right lower lobe Reviewed, dictated and finalized at Location [facility]. Reviewed, dictated and finalized at location A. IMPRESSION: 2 mm left ureterovesical junction calculus with mild left hydrouret eronephrosis Stable right hepatic and left renal cysts Minimal focal nodular infiltrate, posterolateral right lower lobe
[2024-03-07 09:35] VITALS: BP 144/60; PULSE 65; RESP 20; TEMP 36.2; O2SAT 100
[2024-03-07 09:58] VITALS: BP 132/61; PULSE 68; RESP 18; O2SAT 97
[2024-03-07 10:05] LABS: Basophils Absolute Auto 0.1 K/mm3 (0.0-0.1); Basophils Percent Auto 1.2 % (0.2-1.2); Eosinophils Absolute Auto 0.4 K/mm3 (0-0.3); Eosinophils Percent Auto 3.3 % (0-4.4); Hematocrit 40.9 % (37.0-47.0); Hemoglobin 13.1 g/dL (12.0-15.0); Immature Granulocyte Absolute 0.05 K/mm3 (0.00-0.031); Immature Granulocyte Percent A 0.4 % (0-0.5); Lymphocytes Absolute Auto 2.39 K/mm3 (0.9-3.2); Lymphocytes Percent Auto 19.9 % (18.3-44.2); Mean Corpuscular Hemoglobin 28.8 pg (26-34); Mean Corpuscular Volume 89.9 fl (80-100); Mean Platelet Volume 10.3 fl (7.4-10.4); Monocytes Absolute Auto 0.8 K/mm3 (0.1-0.6); Monocytes Percent Auto 6.6 % (2.6-8.5); Neutrophils Absolute Auto 8.3 K/mm3 (1.3-6.7); Neutrophils Percent Auto 68.6 % (45.5-73.1); Platelet Count Result 242 k/mm3 (150-375); Red Blood Count 4.55 M/mm3 (4.2-5.4); Red Cell Distribution Width 14.1 % (11.5-14.5)
--- NOTE | 2024-03-07 10:08 | ED.GENADULT ---
HPI - General Adult General Chief complaint: Urogenital-Female Stated complaint: Flank pain Time Seen by Provider: 03/07/24 09:39 History of Present Illness HPI narrative: Patient is a 73-year-old female who presents ER with left-sided flank pain. Began this morning. No radiation. Associated with nausea vomiting. She feels like she has to urinate but cannot go. Questionable history of kidney stones. No aggravating nor alleviating factors. Related Data Home Medications Medication Instructions Recorded Confirmed albuterol sulfate 90 mcg/actuation 2 puff inhalation Q4-6H PRN 09/13/19 10/17/23 aerosol inhaler (Ventolin HFA) Shortness Of Breath escitalopram oxalate 10 mg tablet 10 mg PO HS 09/13/19 10/17/23 (Lexapro) omalizumab 150 mg subcutaneous 150 mg subcut [id number] 09/13/19 10/17/23 solution (Xolair) rosuvastatin 40 mg tablet (Crestor) 40 mg PO HS 09/13/19 10/17/23 amlodipine 10 mg tablet 10 mg PO DAILY 01/03/20 10/17/23 levothyroxine 75 mcg tablet 75 mcg PO 0630 02/07/21 10/17/23 (Euthyrox) triamcinolone acetonide 0.1 % 1 applic topical TID PRN Rash 11/22/21 10/17/23 topical ointment fluticasone fur. 200 mcg-umeclid 1 inh inhalation DAILY 07/19/23 10/17/23 62.5 mcg-vilant 25 mcg inhalat.powder (Trelegy Ellipta) sacubitril 24 mg-valsartan 26 mg 24 - 26 tablet PO DAILY 07/19/23 10/17/23 tablet (Entresto) Allergies Allergy/AdvReac Type Severity Reaction Status Date / Time tree nut Allergy Unknown Anaphylaxis Verified 03/07/24 09:38 walnut Allergy Unknown Anaphylaxis Verified 03/07/24 09:38 Review of Systems Review of Systems: All systems reviewed & are unremarkable except as noted in HPI and below Constitutional: Constitutional: Reports no additional constitutional complaints ENT: Reports system reviewed and no additional complaints, except as documented Cardiovascular: Cardiovascular: Reports no additional cardiovascular complaints Respiratory: Respiratory: Reports no additional respiratory complaints Gastrointestinal: Gastrointestinal: Denies abdominal pain, Denies diarrhea, Reports nausea and Reports vomiting Genitourinary: Genitourinary: Denies nocturia, Denies dysuria, Reports flank pain and Denies urinary incontinence [facility] Past Medical History Medical History Acute on chronic diastolic CHF (congestive heart failure) Afib Aortic valve disease Asthma CAD (coronary artery disease) Depression Eczema Factor V Leiden Hyperlipidemia Hypertension Obesity Pacemaker Pneumonia Sleep apnea TIA (transient ischemic attack) Surgical History Surgical History History of cardiac catheterization History of heart surgery single bypass to the Left anterior descending, 20 17 Moe Maze procedure also. History of heart valve replacement Aortic valve replacement for severe aortic stenosis, 2016 History of spinal fusion History of tubal ligation S/P aortic valve replacement with bioprosthetic valve Family History Family History Mother Stomach cancer of stomach cancer Uterine cancer Hypertension Father Atrial fibrillation Sudden Found at home on the floor Sibling Hypertension Factor 5 Leiden mutation, heterozygous DVT (deep venous thrombosis) Social History Social History Social History: Patient lives at home with her 2 daughter daughters, Dominique and louisa. She designates her daughter Louisa as her surrogate MDM. Her PCP is Dr. Cason. She wishes to be listed as a Full Code. 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 August 2019. Lifelong nonsmoker and does not use any alcohol or illicit drugs. Smoking status: Never smoker Alcohol intake: never [place]
[2024-03-07 10:15] LABS: Alanine Aminotransferase 28 U/L (6-35); Albumin Level 5.1 g/dL (3.5-5.1); Alkaline Phosphatase 92 U/L (38-126); Anion Gap 9 mmol/L (4-12); Aspartate Amino Transferase 31 U/L (14-36); Bilirubin,Total 0.7 mg/dL (0.2-1.3); Blood Urea Nitrogen 14 mg/dL (7-17); Calcium 9.8 mg/dL (8.4-10.2); Carbon Dioxide 25 mmol/L (22-30); Chloride 106 mmol/L (98-107); Estimated CRCL calculation 35 ml/min; Estimated Glomerular Filt Rate 40; Glucose 129 mg/dL (65-110); Potassium 3.8 mmol/L (3.4-5.0); Sodium 140 mmol/L (137-145)
[2024-03-07 10:26] LABS: Appearance Urine Clear (Clear); Bacteria Urine None Seen /hpf; Bilirubin Urine Negative (Negative); Blood Urine 2+ (Negative); Color Urine Yellow (Yellow); Glucose Urine UA Negative (Negative); Ketones Urine Trace mg/dL (Negative); Leukocyte Esterase Ur 1+ LEU/UL (Negative); Need Manual Microscopic Reviewed; Nitrate Urine Negative (Negative); Protein Urine 2+ mg/dL (Negative); Squamous Epithelial Cell Urine Few /hpf (Few); pH Urine 5.5 (5.0-9.0)
[2024-03-07] MEDS: SODIUM CHLORIDE 0.9% IV 1,000 ML 999 ML IV CONT (10:27)
[2024-03-07] MEDS: ONDANSETRON INJ 4 MG/2 ML VIAL IV PUSH (10:28)
[2024-03-07] MEDS: KETOROLAC 30 MG/ML VIAL (*BKC) 15 MG IV PUSH (10:28)
[2024-03-07 10:29] LABS: Add Urine Microscopic? YES
[2024-03-07 11:23] VITALS: BP 117/59; PULSE 60; RESP 18; O2SAT 100
== END 2024-03-07 11:25 | disposition home or self-care (01) ==
PROVIDERS: Emergency Provider Emergency Medicine; PCP Student in an Organized Health Care Education/Training Program
DX: N13.2 Hydronephrosis with renal and ureteral calculous obstruction (principal); R91.8 Other nonspecific abnormal finding of lung field; I48.91 Unspecified atrial fibrillation; I35.9 Nonrheumatic aortic valve disorder, unspecified; I25.10 Atherosclerotic heart disease of native coronary artery without angina pectoris; I11.0 Hypertensive heart disease with heart failure; J45.909 Unspecified asthma, uncomplicated; E78.5 Hyperlipidemia, unspecified; D68.51 Activated protein C resistance; G47.30 Sleep apnea, unspecified; F32.A Depression, unspecified; Z95.0 Presence of cardiac pacemaker; Z95.1 Presence of aortocoronary bypass graft; Z95.2 Presence of prosthetic heart valve; Z98.1 Arthrodesis status; Z86.73 Personal history of transient ischemic attack (TIA), and cerebral infarction without residual deficits; Z87.01 Personal history of pneumonia (recurrent); N28.1 Cyst of kidney, acquired; K76.89 Other specified diseases of liver
CPT/HCPCS: 36415; 74176; 80053; 81001; 85025; 87086; 87088; 96361; 96374; 96375; 99284; J1885; J2405; J7030

== ENCOUNTER 2024-04-13 08:37 | Outpatient (CLI) | payer MEDICARE, SELFPAY ==
--- NOTE | ~2024-04-13 | DEXA_ITS ---
Bone Density Report Name: CARTER IVEY Age: 73 Sex: Female Ethnicity: White Date of : 1950 Indication: osteopenia; height loss; history of glucocorticoids; asthma or emphysema; Referring Provider: TODD RODRIGUEZ Study: Bone densitometry was performed. Exam Date: April 13, 2024 Accession number: [id number] Bone Density: Region BMD T-score Z-score Classification AP Spine(L1-L4) 0.843 -1.9 0.5 Osteopenia Femoral Neck (Left) 0.663 -1.7 0.3 Osteopenia Total Hip (Left) 0.854 -0.7 1.0 Normal Femoral Neck (Right) 0.666 -1.6 0.3 Osteopenia Total Hip (Right) 0.853 -0.7 1.0 Normal Total Hip Mean 0.854 -0.7 1.0 Normal World Health Organization criteria for BMD impression classify patients as: Normal (T-score at or above -1.0), Osteopenia (T-score between -1.0 and -2.5), or Osteoporosis (T-score at or below -2.5). 10-year Fracture Risk(1): Major Osteoporotic Fracture 16% Hip Fracture 3.5% Reported Risk Factors: [place] (), Neck BMD=0.663, BMI=33.4, glucocorticoids (1) FRAX(R) Version 3.08. Fracture probability calculated for an untreated patient. Fracture probability may be lower if the patient has received treatment. Previous Exams: Region Exam Age BMD T-score BMD Change BMD Change Date g/cm2 vs Baseline vs Previous AP Spine (L1-L4) 04/13/2024 73 0.843 -1.9 0.011 (1.3%) -0.016 (-1.9%) 04/04/2021 70 0.860 -1.7 0.027 (3.3%)* -0.010 (-1.1%) 02/10/2018 67 0.870 -1.6 0.037 (4.4%)* 0.037 (4.4%)* 01/01/2017 66 0.833 -1.9 Total Hip(Left) 04/13/2024 73 0.854 -0.7 0.017 (2.0%) 0.076 (9.7%)* 04/04/2021 70 0.778 -1.3 -0.059 (-7.0%) -0.039 (-4.8%) 02/10/2018 67 0.817 -1.0 -0.019 (-2.3%) -0.019 (-2.3%) 01/01/2017 66 0.837 -0.9 Total Hip(Right) 04/13/2024 73 0.853 -0.7 0.054 (6.7%)* 0.092 (12.1%)* 04/04/2021 70 0.761 -1.5 -0.038 (-4.8%) -0.042 (-5.3%) 02/10/2018 67 0.804 -1.1 0.004 (0.5%) 0.004 (0.5%) 01/01/2017 66 0.800 -1.2 *Denotes significance at 95% confidence level, LSC for AP Spine = 0.022 g/cm2, LSC for Total Hip = 0.027 g/cm2 Clinical Information Provided by Patient: Has taken Glucocorticoids Has used the following medications: Vitamin D Has the following medical conditions: Asthma or Emphysema Patient maximum height was 63.0 Menopause Age: 58 Onset of menses at age 12 Number of children 2 Impression: The pat
--- NOTE | ~2024-04-13 | MM_ITS ---
EXAMINATION: MM screening cassia BI w tez HISTORY: Screening TECHNIQUE: Craniocaudal and mediolateral oblique 3-D tomosynthesis images were obtained and synthetic 2-D images were generated. CAD analysis was submitted and interpreted. COMPARISON: Comparison to multiple prior studies sequentially, with oldest reviewed study dated 05/2017. BREAST PARENCHYMAL COMPOSITION: Not dense: There are scattered areas of fibroglandular density. FINDINGS: There is no evidence of suspicious mass, calcification, or architectural distortion to sugg est malignancy in either breast. There has been no suspicious interval change. IMPRESSION: 1. No mammographic evidence of malignancy. 2. Recommend routine screening mammography in one year. BI-RADS Category 1: Negative Reviewed, dictated and finalized at location B.
== END 2024-04-13 08:38 | disposition home or self-care (01) ==
LOC: ANHIMG 08:41
PROVIDERS: PCP Student in an Organized Health Care Education/Training Program; Visit Provider Anesthesiology
DX: Z12.31 Encounter for screening mammogram for malignant neoplasm of breast (principal); M85.89 Other specified disorders of bone density and structure, multiple sites; Z78.0 Asymptomatic menopausal state
CPT/HCPCS: 77063; 77067; 77080

== ENCOUNTER 2024-07-13 07:43 | Outpatient (CLI) | payer MEDICARE, SELFPAY ==
--- NOTE | ~2024-07-13 | US_ITS ---
Limited ABDOMINAL ULTRASOUND Ordering provider: Mk Cason, DO History: . GALLBLADDER POLYP . Comparison: None. FINDINGS: LIVER: Normal size and echotexture. No focal hepatic lesions or perihepatic fluid collections are luca ntified. Cyst is seen in the right lobe of the liver posteriorly measuring 1.1 x 1.3 x 1.1 cm. Portal vein flow is normal. GALLBLADDER: Polyps is seen which measures 0.3 x 0.4 x 2.4 cm. No evidence for stones, sludge, gallbl adder wall thickening or pericholecystic fluid collections. A negative sonographic Doyle's sign was noted. BILIARY DUCTS: No evidence for intra or extrahepatic biliary dilation. Common bile duct measures 2 mm in diameter which is within normal limits. PANCREAS: Normal echotexture and size. The tail is not properly evaluated. Pancreatic duct measures 1 mm. UPPER ABDOMINAL AORTA: Normal in caliber. IVC: Patent. FREE FLUID: None. IMPRESSION: 1. Gallbladder polyp. Cyst in the right lobe of the liver. Otherwise, unremarkable limited ultrasound of the abdomen. Reviewed, dictated and finalized at location A. IMPRESSION: 1. Gallbladder polyp. Cyst in the right lobe of the liver. Otherwise, unremarka ble limited ultrasound of the abdomen.
== END 2024-07-13 07:44 | disposition home or self-care (01) ==
PROVIDERS: PCP Student in an Organized Health Care Education/Training Program; Visit Provider Student in an Organized Health Care Education/Training Program
DX: K82.4 Cholesterolosis of gallbladder (principal); K76.89 Other specified diseases of liver
CPT/HCPCS: 76705

== ENCOUNTER 2025-06-28 08:45 | Outpatient (CLI) | payer MEDICARE, SELFPAY ==
--- NOTE | ~2025-06-28 | US_ITS ---
US abdomen limited INDICATION: Gallbladder polyp PROCEDURE: Realtime right upper abdominal ultrasound. COMPARISON: Ultrasound dated 07/13/2024 FINDINGS: The pancreas is normal without focal mass or pancreatic ductal dilation. There is a liver cyst measuring 1.5 cm. Otherwise liver echotexture is normal. No solid masses. There is normal directional flow in the portal vein. Stable 4 mm gallbladder polyp. No gallstones, gallbladder wall thickening or pericholecystic fluid. Common bile duct measures 4 mm. No sonographic Doyle's sign. IMPRESSION: 1: Stable 4 mm gallbladder polyp. Reviewed, dictated and finalized at location O.
== END 2025-06-28 08:46 | disposition home or self-care (01) ==
LOC: MICIMG 08:45
PROVIDERS: PCP Student in an Organized Health Care Education/Training Program; Visit Provider Student in an Organized Health Care Education/Training Program
DX: K82.4 Cholesterolosis of gallbladder (principal)
CPT/HCPCS: 76705

== ENCOUNTER 2025-07-06 14:10 | Emergency (ER) | payer MEDICARE, SELFPAY ==
[2025-07-06 14:45] VITALS: BP 122/60; PULSE 63; RESP 20; TEMP 36.8; O2SAT 99
--- NOTE | 2025-07-06 15:17 | ED_ITS ---
HPI - Extremity Problem General Chief complaint: Extremity Problem,Nontraumatic Stated complaint: left foot pain Time Seen by Provider: 07/06/25 15:17 Source: patient Mode of arrival: ambulatory Limitations: no limitations History of Present Illness HPI Narrative: 74-year-old female presents with complaint of left foot pain with cramping at bedtime. Patient states she has some aching to left foot during the day. Tender on palpation. Denies injury. A couple hours after getting into bed she has cramping pain to her left foot that wakes her from sleep. Tries to stretch it, last several hours. All systems reviewed and negative except as noted above. Related Data Home Medications ?Medication ?Instructions ?Recorded ?Confirmed ?Last Taken ?Type albuterol sulfate 90 mcg/actuation 2 puff inhalation Q 4-6H PRN 09/13/19 10/17/23 12/03/21 History aerosol inhaler (Ventolin HFA) Shortness Of Breath escitalopram oxalate 10 mg tablet 10 mg PO HS 09/13/19 10/17/23 12/03/21 History (Lexapro) rosuvastatin 40 mg tablet (Crestor) 40 mg PO HS 10/17/23 12/03/21 History amlodipine 10 mg tablet 10 mg PO DAILY 01/03/2009/2712/03/21 History levothyroxine 75 mcg tablet 75 mcg PO 0630 02/07/2112/03/21 History (Euthyrox) triamcinolone acetonide 0.1 % 1 applic topical TID PRN Rash 11/22/21 10/17/23 12/03/21 History topical ointment fluticasone fur. 200 mcg-umeclid 1 inh inhalation JENNA Y 07/19/23 10/17/23 Unknown History 62.5 mcg-vilant 25 mcg inhalat.powder (Trelegy Ellipta) sacubitril 24 mg-valsartan 26 mg 24 - 26 tablet PO SEBASTIAN LY 07/19/23 10/17/23 Unknown History tablet (Entresto) tezepelumab-ekko 210 mg/1.91 mL mg subcut 07/06/25 Un known History (110 mg/mL) subcutaneous syringe (Tezspire) Allergies Allergy/AdvReac Type Severity Reaction Status Date / Time tree nut Allergy Unknown Anaphylaxis Verified 07/06/25 14:56 walnut Allergy Unknown Anaphylaxis Verified 07/06/25 14:56 [facility] Past Medical History Medical History Acute on chronic diastolic CHF (congestive heart failure) Afib Aortic valve disease Asthma CAD (coronary artery disease) Depression Eczema Factor V Leiden Hyperlipidemia Hypertension Obesity Pacemaker Pneumonia Sleep apnea TIA (transient ischemic attack) Surgical History Surgical History History of cardiac catheterization History of heart surgery single bypass to the Left anterior descending, 20 17 Moe Maze procedure also. History of heart valve replacement Aortic valve replacement for severe aortic stenosis, 2016 History of spinal fusion History of tubal ligation S/P aortic valve replacement with bioprosthetic valve Family History Family History Mother Stomach cancer of stomach cancer Uterine cancer Hypertension Father Atrial fibrillation Sudden Found at home on the floor Sibling Hypertension Factor 5 Leiden mutation, heterozygous DVT (deep venous thrombosis) Social History Social History Social History: Patient lives at home with her 2 daughter daughters, Dominique and louisa. She designates her daughter Louisa as her surrogate MDM. Her PCP is Dr. Cason. She wishes to be listed as a Full Code. 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 August 2019. Lifelong nonsmoker and does not use any alcohol or illicit drugs. Smoking status: Never smoker Alcohol intake: never Substance use: never Substance use type: does not use Lack of Transportation: No Lack of Food: Never True Current Housing: I Have Housing Concerned About Future Housing: No Difficulty Paying Gas/Electric Bills: No Difficulty Paying for Meds: YES Currently Unemployed: No Education: Associate Degree Difficulty w/ Childcare or Family Care: No Living arrangements: with family Gender identity (if verbalized by the patient): Female Spiritual care concerns: No Agree to blood products: Yes Comments At time of signature, agree with nursing past medical, surgical, social and family history. There is no relevant family history pertinent to the presenting complaint. Exam Narrative: GENERAL: This is a well-nourished, well-developed patient, in no apparent distress. HEAD: normocephalic, atraumatic. EYES: PERRL. Sclera clear/white. Vision is grossly intact. EARS: External ears normal NOSE: External nose normal NECK: Neck supple, non-tender without lymphadenopathy, masses or thyromegaly. CARDIOVASCULAR: Regular rate and rhythm without murmurs, gallops, or rubs. RESPIRATORY: Clear to auscultation. Breath sounds equal bilaterally. No wheezes, rales, or rhonchi. SKIN: warm, Dry, intact with no suspicious lesions or rash, good texture and turgor. NEURO: awake, alert, and oriented to person, place and time. There were no obvious focal neurologic abnormalities. EXTREMITIES: Tenderness to medial aspect left foot without erythema, swelling, deformity noted. No warmth on palpation. Course Course Level of Care: Express Care Visit Vital Signs Vital signs: Vital Signs Temperature 36.8 C 07/06/25 14:45 Pulse Rate 63 07/06/25 14:45 Respiratory Rate 20 07/06/25 14:45 Blood Pressure 122/60 07/06/25 14:45 Pulse Oximetry 99 07/06/25 14:45 Oxygen Delivery Room Air 07/06/25 14:45 Temperature 36.8 C 07/06/25 14:45 Pulse Rate 63 07/06/25 14:45 Respiratory Rate 20 07/06/25 14:45 Blood Pressure 122/60 07/06/25 14:45 Pulse Oximetry 99 07/06/25 14:45 Oxygen Delivery Room Air 07/06/25 14:45 Reviewed MDM - Extremity (Nontraumatic) MDM Narrative Medical decision making narrative: will treat with prednisone for inflammation. Most likely arthritic. Recommend Tylenol for pain. Will take cyclobenzaprine as needed for foot cramps at night. Unable to do x-ray today due to no x-ray tech. Patient will follow-up with her securities research analyst if not improving. Discharge Plan Discharge Clinical Impression: Nocturnal foot cramps Patient Disposition: Home Condition: Stable Instructions: General Patient Instructions Additional Instructions: Take medications as prescribed. Cyclobenzaprine is a muscle relaxant and may make you drowsy. Do not drive while taking it. Drink at least 64 ounces of water a day. Stretch lower legs and feet prior to bedtime. See your securities research analyst if not improving. Patient Language: Greenlandic Prescriptions: New cyclobenzaprine 10 mg tablet 10 mg PO Q12H PRN (Reason: muscle spasm) Qty: 20 0RF prednisone 20 mg tablet 20 mg PO DAILY 7 Days Qty: 7 0RF No Action Tezspire 210 mg/1.91 mL (110 mg/mL) syringe SUBCUT levothyroxine [Euthyrox] 75 mcg tablet 75 mcg PO 0630 triamcinolone acetonide 0.1 % ointment 1 applic TOPICAL TID PRN (Reason: Rash) albuterol sulfate [Ventolin HFA] 90 mcg/actuation HFA aerosol inhaler 2 puff INHALATION Q4-6H PRN (Reason: Shortness Of Breath) escitalopram oxalate [Lexapro] 10 mg tablet 10 mg PO HS rosuvastatin [Crestor] 40 mg tablet 40 mg PO HS amlodipine 10 mg Tablet 10 mg PO DAILY Entresto 24-26 mg tablet 24 - 26 tablet PO DAILY Trelegy Ellipta 200-62.5-25 mcg blister with device 1 inh INHALATION DAILY Follow-up/Referrals: Kamla,DO Mk [Primary Care Provider]
== END 2025-07-06 15:36 | disposition home or self-care (01) ==
PROVIDERS: Emergency Provider Nurse Practitioner Family; PCP Student in an Organized Health Care Education/Training Program
DX: G47.62 Sleep related leg cramps (principal); I48.91 Unspecified atrial fibrillation; I25.10 Atherosclerotic heart disease of native coronary artery without angina pectoris; E78.5 Hyperlipidemia, unspecified; I11.0 Hypertensive heart disease with heart failure; I50.9 Heart failure, unspecified; Z95.0 Presence of cardiac pacemaker; E66.9 Obesity, unspecified; Z86.73 Personal history of transient ischemic attack (TIA), and cerebral infarction without residual deficits; Z95.2 Presence of prosthetic heart valve
CPT/HCPCS: 99213; G0463